=== PATIENT | male | born 1960 | race Caucasian/White ===

== ENCOUNTER 2017-03-14 08:51 | Emergency (ER) | payer MEDICARE, MEDICAID ==
[~2017-03-14] VITALS: Ht 177.8 cm; Wt 92.0 kg
[~2017-03-14 08:51] MED LIST: ASPI-1265 PO; BUPR2TAB11 SL; CARV6.253 PO; LISI-600 PO; NITR0.4T51 SL; ROSU5TAB PO; TEMA30CA5 PO; TRAZ-143 PO
[2017-03-14 08:56] VITALS: BP 127/94
[2017-03-14] MEDS ORDERED: PERM60CR19 TP (09:01)
== END 2017-03-14 09:17 | disposition home or self-care (01) ==
LOC: ER 08:52
DX: B86 Scabies (principal); I10 Essential (primary) hypertension; J44.9 Chronic obstructive pulmonary disease, unspecified; I25.10 Atherosclerotic heart disease of native coronary artery without angina pectoris; G89.29 Other chronic pain; I25.2 Old myocardial infarction; F12.10 Cannabis abuse, uncomplicated; F15.10 Other stimulant abuse, uncomplicated; Z86.73 Personal history of transient ischemic attack (TIA), and cerebral infarction without residual deficits; Z98.890 Other specified postprocedural states; Z79.82 Long term (current) use of aspirin
CPT/HCPCS: 99283

== ENCOUNTER 2017-04-09 14:11 | Emergency (ER) | payer MEDICARE, MEDICAID ==
[~2017-04-09] VITALS: Ht 177.8 cm; Wt 95.4 kg
[~2017-04-09 14:11] MED LIST changes: +PERM60CR19 TP
[2017-04-09 14:50] LABS: CLARITY,URINE Clear (Clear); COLOR,URINE Yellow (Yellow); GLUCOSE, URINE Negative (Neg); KETONES,URINE Negative (Neg); LEUKOCYTE ESTERASE ,URINE Negative (Neg); NITRITES, URINE Negative (Neg); OCCULT BLOOD,URINE Negative (Neg); PH,URINE 8.5 (4.8-8.0); PROTEIN,URINE Negative (Neg); UROBILINOGEN,URINE 0.2 E.U/dL (0.2-1.0)
[2017-04-09 14:52] LABS: ALANINE AMINOTRANSFERASE 41 U/L (12-78); ALBUMIN 4.2 G/DL (3.4-5.0); ALBUMIN/GLOBULIN RATIO 1.4 (1.1-1.5); ALKALINE PHOSPHATASE 78 IU/L (46-116); ANION GAP 7 (8-16); ASPARTATE AMINO TRANSFERASE 23 U/L (10-37); BILIRUBIN,TOTAL 0.9 MG/DL (0.1-1.0); BLOOD UREA NITROGEN 15 MG/DL (7-18); BUN/CREATININE RATIO 12.5 (5.4-32.0); CALCIUM 8.9 MG/DL (8.5-10.1); CHLORIDE 105 MMOL/L (99-107); GLUCOSE 85 MG/DL (70-104); LIPASE 92 U/L (73-393); POTASSIUM 4.1 MMOL/L (3.5-5.1); SODIUM 141 MMOL/L (135-145); TOTAL CARBON DIOXIDE 28.6 MMOL/L (24-32); TOTAL PROTEIN 7.3 G/DL (6.4-8.2); eGFR 62 ML/MIN
[2017-04-09 15:00] LABS: UA COLLECTION TYPE CLN CATCH MIDSTREAM
[2017-04-09 15:59] VITALS: BP 142/80
[2017-04-09 16:52] LABS: BASOPHILS % (AUTO) 0.4 % (0-1); EOSINOPHILS # (AUTO) 0.5 X10'3 (0-0.9); EOSINOPHILS % (AUTO) 3.6 % (0-6); HEMATOCRIT 52.1 % (42.0-52.0); LYMPHOCYTES # (AUTO) 1.8 X10'3 (1.1-4.8); LYMPHOCYTES % (AUTO) 13.9 % (21-51); MEAN CORPUSCULAR HEMOGLOBIN 34.7 PG (27.0-31.0); MEAN CORPUSCULAR HGB CONC 36.3 % (33.0-36.5); MEAN CORPUSCULAR VOLUME 95.7 FL (78-98); MEAN PLATELET VOLUME 10.3 FL (7.4-10.4); MONOCYTES # (AUTO) 0.8 X10'3 (0-0.9); MONOCYTES % (AUTO) 6.5 % (2-12); NEUTROPHILS # (AUTO) 9.7 X10'3 (1.8-7.7); NEUTROPHILS % (AUTO) 75.6 % (42-75); PLATELET COUNT 245 X10'3 (140-440); RED BLOOD COUNT 5.44 X10'6 (4.70-6.10); WHITE BLOOD COUNT 12.8 X10'3 (4.5-11.0)
[2017-04-09 17:17] LABS: HEMOGLOBIN 18.9 g/dl (14.0-17.9)
== END 2017-04-09 16:01 | disposition home or self-care (01) ==
LOC: ER 14:11
DX: K59.00 Constipation, unspecified (principal); I25.2 Old myocardial infarction; G89.29 Other chronic pain; J44.9 Chronic obstructive pulmonary disease, unspecified; F41.9 Anxiety disorder, unspecified; F32.9 Major depressive disorder, single episode, unspecified; I10 Essential (primary) hypertension; I25.10 Atherosclerotic heart disease of native coronary artery without angina pectoris; G43.909 Migraine, unspecified, not intractable, without status migrainosus; F12.10 Cannabis abuse, uncomplicated; F15.10 Other stimulant abuse, uncomplicated; Z86.73 Personal history of transient ischemic attack (TIA), and cerebral infarction without residual deficits; Z79.82 Long term (current) use of aspirin
CPT/HCPCS: 36415; 80053; 81003; 83690; 85025; 99284

== ENCOUNTER 2017-05-08 16:12 | Emergency (ER) | payer MEDICARE, MEDICAID ==
[~2017-05-08] VITALS: Ht 177.8 cm; Wt 95.0 kg
[~2017-05-08 16:12] MED LIST changes: -PERM60CR19 TP
[2017-05-08] MEDS ORDERED: TAM75C PO (16:37)
[2017-05-08 16:44] VITALS: BP 157/96
== END 2017-05-08 16:46 | disposition home or self-care (01) ==
LOC: ER 16:12
DX: B34.9 Viral infection, unspecified (principal); I25.10 Atherosclerotic heart disease of native coronary artery without angina pectoris; I10 Essential (primary) hypertension; I25.2 Old myocardial infarction; J44.9 Chronic obstructive pulmonary disease, unspecified; G89.29 Other chronic pain; F12.90 Cannabis use, unspecified, uncomplicated; F15.90 Other stimulant use, unspecified, uncomplicated; Z86.73 Personal history of transient ischemic attack (TIA), and cerebral infarction without residual deficits; Z98.890 Other specified postprocedural states; Z79.82 Long term (current) use of aspirin; Z79.899 Other long term (current) drug therapy
CPT/HCPCS: 99283

== ENCOUNTER 2017-07-06 08:19 | Emergency (ER) | payer MEDICARE, MEDICAID ==
[~2017-07-06] VITALS: Ht 5787.1 cm; Wt 92.5 kg
[2017-07-06 08:25] VITALS: BP 129/80
[2017-07-06] MEDS ORDERED: mupirocin 2% ointment 22GM TP STA (09:05)
== END 2017-07-06 09:27 | disposition home or self-care (01) ==
LOC: ER 08:19
DX: R21 Rash and other nonspecific skin eruption (principal); I25.10 Atherosclerotic heart disease of native coronary artery without angina pectoris; I10 Essential (primary) hypertension; I25.2 Old myocardial infarction; G89.29 Other chronic pain; G43.909 Migraine, unspecified, not intractable, without status migrainosus; F12.10 Cannabis abuse, uncomplicated; F15.10 Other stimulant abuse, uncomplicated; Z98.890 Other specified postprocedural states; Z87.891 Personal history of nicotine dependence; Z86.73 Personal history of transient ischemic attack (TIA), and cerebral infarction without residual deficits
CPT/HCPCS: 99282

== ENCOUNTER 2017-08-29 11:37 | Emergency (ER) | payer MEDICARE, MEDICAID ==
[~2017-08-29] VITALS: Ht 177.8 cm; Wt 93.1 kg
[2017-08-29 11:47] VITALS: BP 129/72
[2017-08-29] MEDS ORDERED: PERM60CR19 TP (12:53)
[2017-08-29] MEDS ORDERED: FLUC150T66 PO (12:53)
== END 2017-08-29 13:00 | disposition home or self-care (01) ==
LOC: ER 11:38
DX: R21 Rash and other nonspecific skin eruption (principal); G43.909 Migraine, unspecified, not intractable, without status migrainosus; I10 Essential (primary) hypertension; I25.2 Old myocardial infarction; I25.10 Atherosclerotic heart disease of native coronary artery without angina pectoris; F12.90 Cannabis use, unspecified, uncomplicated; F15.90 Other stimulant use, unspecified, uncomplicated; G89.29 Other chronic pain; Z86.73 Personal history of transient ischemic attack (TIA), and cerebral infarction without residual deficits; Z98.61 Coronary angioplasty status; Z98.890 Other specified postprocedural states; Z79.82 Long term (current) use of aspirin; Z79.899 Other long term (current) drug therapy
CPT/HCPCS: 99283

== ENCOUNTER 2017-12-23 11:43 | Emergency (ER) | payer MEDICARE, MEDICAID ==
[~2017-12-23] VITALS: Ht 175.3 cm; Wt 88.6 kg
[~2017-12-23 11:43] MED LIST changes: -TRAZ-143 PO; +TRAZ-218 PO
[2017-12-23 12:27] LABS: BASOPHILS # (AUTO) 0.1 X10'3 (0-0.2); BASOPHILS % (AUTO) 0.8 % (0-1); EOSINOPHILS # (AUTO) 0.5 X10'3 (0-0.9); EOSINOPHILS % (AUTO) 6.2 % (0-6); HEMATOCRIT 48.4 % (42.0-52.0); LYMPHOCYTES # (AUTO) 1.4 X10'3 (1.1-4.8); LYMPHOCYTES % (AUTO) 16.6 % (21-51); MEAN CORPUSCULAR HEMOGLOBIN 34.9 PG (27.0-31.0); MEAN CORPUSCULAR HGB CONC 35.1 % (33.0-36.5); MEAN CORPUSCULAR VOLUME 99.6 FL (78-98); MEAN PLATELET VOLUME 9.1 FL (7.4-10.4); MONOCYTES # (AUTO) 0.9 X10'3 (0-0.9); MONOCYTES % (AUTO) 11.1 % (2-12); NEUTROPHILS # (AUTO) 5.7 X10'3 (1.8-7.7); NEUTROPHILS % (AUTO) 65.3 % (42-75); PLATELET COUNT 196 X10'3 (140-440); RED BLOOD COUNT 4.86 X10'6 (4.70-6.10); RED CELL DISTRIBUTION WIDTH 12.4 % (11.5-14.5); WHITE BLOOD COUNT 8.6 X10'3 (4.5-11.0)
[2017-12-23 12:38] LABS: PARTIAL THROMBOPLASTIN TIME 29 SECONDS (22-32); PROTHROMBIN TIME 9.9 SECONDS (9.0-12.0)
[2017-12-23 12:41] LABS: ALANINE AMINOTRANSFERASE 39 U/L (12-78); ALBUMIN 3.9 G/DL (3.4-5.0); ALBUMIN/GLOBULIN RATIO 1.4 (1.1-1.5); ALKALINE PHOSPHATASE 80 IU/L (46-116); ANION GAP 9 (8-16); ASPARTATE AMINO TRANSFERASE 39 U/L (10-37); BILIRUBIN,TOTAL 0.7 MG/DL (0.1-1.0); BLOOD UREA NITROGEN 14 MG/DL (7-18); BUN/CREATININE RATIO 12.6 (5.4-32.0); CALCIUM 8.9 MG/DL (8.5-10.1); CHLORIDE 101 MMOL/L (99-107); CREATININE 1.11 MG/DL (0.60-1.10); GLUCOSE 129 MG/DL (70-104); POTASSIUM 3.9 MMOL/L (3.5-5.1); SODIUM 137 MMOL/L (135-145); TOTAL CARBON DIOXIDE 27.4 MMOL/L (24-32); TOTAL PROTEIN 6.7 G/DL (6.4-8.2); eGFR 68 ML/MIN
[2017-12-23] MEDS ORDERED: ipratropium/albuterol 3ml nebule NEB ONE (12:50)
[2017-12-23 13:09] VITALS: BP 118/81
[2017-12-23] MEDS ORDERED: BUDE10.2 INH (13:49)
[2017-12-23] MEDS ORDERED: ALBU18HF2 INH (13:49)
[2017-12-23] MEDS ORDERED: NEBU-161 NEB (13:49)
[2017-12-23] MEDS ORDERED: ALB0.5UD IH (13:49)
[2017-12-24] MEDS ORDERED: BUSP15TA14 PO (15:41)
[2017-12-24] MEDS ORDERED: AMLO2.5T2 PO (15:41)
== END 2017-12-23 14:04 | disposition home or self-care (01) ==
LOC: ER 11:43
DX: J44.9 Chronic obstructive pulmonary disease, unspecified (principal); I10 Essential (primary) hypertension; G43.909 Migraine, unspecified, not intractable, without status migrainosus; I25.10 Atherosclerotic heart disease of native coronary artery without angina pectoris; I25.2 Old myocardial infarction; K57.90 Diverticulosis of intestine, part unspecified, without perforation or abscess without bleeding; G89.29 Other chronic pain; M54.9 Dorsalgia, unspecified; F12.90 Cannabis use, unspecified, uncomplicated; F17.210 Nicotine dependence, cigarettes, uncomplicated; F15.90 Other stimulant use, unspecified, uncomplicated; Z95.1 Presence of aortocoronary bypass graft; Z79.82 Long term (current) use of aspirin; Z86.73 Personal history of transient ischemic attack (TIA), and cerebral infarction without residual deficits
CPT/HCPCS: 36415; 71046; 80053; 83880; 84484; 85025; 85610; 85730; 93005; 94640; 99285

== ENCOUNTER 2017-12-24 11:08 | Inpatient (IN) | payer MEDICARE, MEDICAID ==
[~2017-12-24] VITALS: Ht 177.8 cm; Wt 85.9 kg
[~2017-12-24 11:08] MED LIST changes: +ALB0.5UD IH; +ALBU18HF2 INH; +BUDE10.2 INH; +NEBU-161 NEB
[2017-12-24] MEDS ORDERED: normal saline 1000ML IV soln IVB ONE (12:15)
[2017-12-24 12:19] LABS: BASOPHILS # (AUTO) 0.1 X10'3 (0-0.2); BASOPHILS % (AUTO) 0.3 % (0-1); EOSINOPHILS # (AUTO) 0.4 X10'3 (0-0.9); EOSINOPHILS % (AUTO) 1.6 % (0-6); HEMOGLOBIN 15.2 g/dl (14.0-17.9); LYMPHOCYTES # (AUTO) 1.2 X10'3 (1.1-4.8); LYMPHOCYTES % (AUTO) 5.1 % (21-51); MEAN CORPUSCULAR HEMOGLOBIN 33.6 PG (27.0-31.0); MEAN CORPUSCULAR HGB CONC 33.7 % (33.0-36.5); MEAN CORPUSCULAR VOLUME 99.6 FL (78-98); MEAN PLATELET VOLUME 9.1 FL (7.4-10.4); MONOCYTES # (AUTO) 1.6 X10'3 (0-0.9); MONOCYTES % (AUTO) 7.1 % (2-12); NEUTROPHILS # (AUTO) 19.4 X10'3 (1.8-7.7); NEUTROPHILS % (AUTO) 85.9 % (42-75); PLATELET COUNT 206 X10'3 (140-440); RED BLOOD COUNT 4.52 X10'6 (4.70-6.10); RED CELL DISTRIBUTION WIDTH 13.2 % (11.5-14.5); WHITE BLOOD COUNT 22.6 X10'3 (4.5-11.0)
[2017-12-24 12:22] LABS: ALANINE AMINOTRANSFERASE 26 U/L (12-78); ALBUMIN 3.4 G/DL (3.4-5.0); ALBUMIN/GLOBULIN RATIO 1.2 (1.1-1.5); ALKALINE PHOSPHATASE 60 IU/L (46-116); ANION GAP 6 (8-16); ASPARTATE AMINO TRANSFERASE 19 U/L (10-37); BILIRUBIN,TOTAL 1.3 MG/DL (0.1-1.0); BLOOD UREA NITROGEN 16 MG/DL (7-18); BUN/CREATININE RATIO 12.7 (5.4-32.0); CALCIUM 8.2 MG/DL (8.5-10.1); CHLORIDE 104 MMOL/L (99-107); CREATININE 1.26 MG/DL (0.60-1.10); GLUCOSE 118 MG/DL (70-104); POTASSIUM 4.3 MMOL/L (3.5-5.1); SODIUM 136 MMOL/L (135-145); TOTAL CARBON DIOXIDE 25.6 MMOL/L (24-32); TOTAL PROTEIN 6.2 G/DL (6.4-8.2); eGFR 59 ML/MIN
[2017-12-24 12:23] LABS: PARTIAL THROMBOPLASTIN TIME 30 SECONDS (22-32); PROTHROMBIN TIME 10.7 SECONDS (9.0-12.0)
[2017-12-24 12:53] LABS: D-DIMER 0.21 MG/L FEU (0-0.50)
[2017-12-24 13:10] LABS: PLATELET ESTIMATE NORMAL; TOTAL CELLS COUNTED 100
[2017-12-24 13:35] LABS: TROPONIN I < 0.04 NG/ML (0.0-0.05)
[2017-12-24 14:02] LABS: URINE AMPHETAMINE SCREEN POSITIVE (Neg); URINE BARBITUATE SCREEN NEGATIVE (Neg); URINE BENZODIAZEPINES SCREEN POSITIVE (Neg); URINE CANNABINOID SCREEN NEGATIVE (Neg); URINE COCAINE SCREEN NEGATIVE (Neg); URINE METHADONE SCREEN NEGATIVE (Neg); URINE OPIATE SCREEN NEGATIVE (Neg); URINE PHENCYCLIDINE SCREEN NEGATIVE (Neg)
[2017-12-24 14:10] LABS: CLARITY,URINE CLEAR (Clear); GLUCOSE, URINE NEGATIVE (Neg); KETONES,URINE TRACE mg/dl (Neg); LEUKOCYTE ESTERASE ,URINE NEGATIVE (Neg); NITRITES, URINE NEGATIVE (Neg); OCCULT BLOOD,URINE NEGATIVE (Neg); PROTEIN,URINE NEGATIVE (Neg); UROBILINOGEN,URINE 0.2 E.U/dL (0.2-1.0)
[2017-12-24 14:14] LABS: COLOR,URINE DARK YELLOW (Yellow); UA COLLECTION TYPE CLN CATCH MIDSTREAM
[2017-12-24] MEDS ORDERED: ketorolac trometh. 30mg/ml inj. IV ONE (14:35)
[2017-12-24] MEDS ORDERED: azithromycin/NS 500mg/250ml 250 ML IV ONE (14:55)
[2017-12-24] MEDS ORDERED: CefTRIAXone/D5W-Rocephin 1gm 50 ML IV ONE (14:55)
[2017-12-24] MEDS ORDERED: AMLO2.5T2 PO (15:41)
[2017-12-24] MEDS ORDERED: BUSP15TA14 PO (15:41)
[2017-12-24] MEDS ORDERED: magnesium 4gm in 100ml NS 100 ML IV PRN (15:45)
[2017-12-24] MEDS ORDERED: potassium Cl 20 mEq SR tablet PO PRN ×2 (15:45)
[2017-12-24] MEDS ORDERED: non-formulary drug (Temazepam* (Restoril*) 1 CAP) PO PRN (15:45)
[2017-12-24] MEDS ORDERED: magnesium 1gm/100ml D5W IVPB 100 ML IV PRN (15:45)
[2017-12-24] MEDS ORDERED: magnesium hydroxide 30ml (MOM) UD suspension PO PRN (15:45)
[2017-12-24] MEDS ORDERED: HYDROcodone/acetaminophen 10/325mg tab PO PRN (15:45)
[2017-12-24] MEDS ORDERED: magnesium Cl slow-release 64mg tablet PO PRN (15:45)
[2017-12-24] MEDS ORDERED: mag hydrox/Alum hydrox/simeth 30ml oral suspension PO PRN (15:45)
[2017-12-24] MEDS ORDERED: non-formulary drug (Buprenorphine Hcl 1 TAB) SL PRN (15:45)
[2017-12-24] MEDS ORDERED: potassium Cl 40MEQ/NS 500ml 500 ML IV PRN ×2 (15:45)
[2017-12-24] MEDS ORDERED: ondansetron/PF 4mg/2ml inj IV PRN (15:45)
[2017-12-24] MEDS ORDERED: bisacodyl 10mg suppository rectal RC PRN (15:45)
[2017-12-24] MEDS ORDERED: nitroGLYCERIN 0.4mg SUBLingual tab SL PRN (15:45)
[2017-12-24] MEDS ORDERED: morphine 2 MG/ML inj. syringe IV PRN ×2 (15:45)
[2017-12-24] MEDS ORDERED: HYDROcodone/acetaminophen 5mg/325mg tablet PO PRN (15:45)
[2017-12-24] MEDS ORDERED: non-formulary drug (Albuterol Sulfate (Ventolin Hfa) 2 PUFFS) INH PRN (15:45)
[2017-12-24] MEDS ORDERED: acetaminophen 325mg tablet PO PRN (15:45)
[2017-12-24] MEDS ORDERED: guaiFENesin 200 MG/10 ML oral syrup UD cup PO PRN (15:50)
[2017-12-24] MEDS ORDERED: albuterol 2.5 MG/3 ML nebule NEB PRN (16:00)
[2017-12-24] MEDS ORDERED: temazepam 15mg capsule PO PRN (16:00)
[2017-12-24 16:40] VITALS: BP 100/61
[2017-12-24] MEDS: normal saline 1000ml 1,000 ML IV SCH (17:23)
[2017-12-24 18:00] VITALS: BP 100/61
[2017-12-24] MEDS: ipratropium/albuterol 3ml nebule NEB SCH ×2 (19:00→23:00)
[2017-12-24] MEDS: albuterol 2.5 MG/3 ML nebule NEB SCH (19:54)
[2017-12-24] MEDS: budesonide 0.5mg/2ml UD nebule IH SCH (19:54)
[2017-12-24] MEDS ORDERED: non-formulary drug (Budesonide/Formoterol Fumarate (Symbicort 160-4.5 Mcg Inhaler) 2 PUFFS INH SCH (20:00)
[2017-12-24] MEDS: buprenorphine/naloxone 2-0.5mg sublingual tablet SL SCH (20:00)
[2017-12-24] MEDS: busPIRone 15mg tablet PO SCH (21:04)
[2017-12-24] MEDS: carvedilol 6.25mg tablet PO SCH (21:04)
[2017-12-24] MEDS: traZODone 50mg tablet PO SCH (21:04)
[2017-12-24] MEDS: docusate sod 100mg capsule PO SCH (21:04)
[2017-12-24] MEDS: methylPREDNISolone sod succ 125mg/2ml vial IV SCH (21:06)
[2017-12-24 22:00] VITALS: BP 126/76
[2017-12-25] MEDS: diazepam 5mg tablet PO SCH ×2 (00:22→08:35)
[2017-12-25] MEDS: normal saline 1000ml 1,000 ML IV SCH ×3 (01:41→17:35)
[2017-12-25] MEDS: methylPREDNISolone sod succ 125mg/2ml vial IV SCH ×4 (02:41→21:11)
[2017-12-25] MEDS: ipratropium/albuterol 3ml nebule NEB SCH (03:00)
[2017-12-25 05:00] VITALS: BP 117/61
[2017-12-25 06:29] LABS: BASOPHILS % (AUTO) 0.2 % (0-1); EOSINOPHILS % (AUTO) 0 % (0-6); HEMOGLOBIN 16.3 g/dl (14.0-17.9); LYMPHOCYTES # (AUTO) 0.9 X10'3 (1.1-4.8); LYMPHOCYTES % (AUTO) 4.4 % (21-51); MEAN CORPUSCULAR HEMOGLOBIN 35.1 PG (27.0-31.0); MEAN CORPUSCULAR HGB CONC 35.5 % (33.0-36.5); MEAN PLATELET VOLUME 9.1 FL (7.4-10.4); MONOCYTES # (AUTO) 0.2 X10'3 (0-0.9); MONOCYTES % (AUTO) 0.8 % (2-12); NEUTROPHILS # (AUTO) 18.6 X10'3 (1.8-7.7); NEUTROPHILS % (AUTO) 94.6 % (42-75); PLATELET COUNT 188 X10'3 (140-440); RED BLOOD COUNT 4.65 X10'6 (4.70-6.10); RED CELL DISTRIBUTION WIDTH 12.4 % (11.5-14.5); WHITE BLOOD COUNT 19.7 X10'3 (4.5-11.0)
[2017-12-25 06:48] LABS: ALANINE AMINOTRANSFERASE 27 U/L (12-78); ALBUMIN 3.2 G/DL (3.4-5.0); ALBUMIN/GLOBULIN RATIO 0.9 (1.1-1.5); ALKALINE PHOSPHATASE 72 IU/L (46-116); ANION GAP 10 (8-16); ASPARTATE AMINO TRANSFERASE 14 U/L (10-37); BILIRUBIN,TOTAL 0.4 MG/DL (0.1-1.0); BLOOD UREA NITROGEN 15 MG/DL (7-18); BUN/CREATININE RATIO 12.7 (5.4-32.0); CALCIUM 8.4 MG/DL (8.5-10.1); CHLORIDE 107 MMOL/L (99-107); CREATININE 1.18 MG/DL (0.60-1.10); GLUCOSE 204 MG/DL (70-104); POTASSIUM 4.3 MMOL/L (3.5-5.1); SODIUM 140 MMOL/L (135-145); TOTAL CARBON DIOXIDE 23.3 MMOL/L (24-32); TOTAL PROTEIN 6.6 G/DL (6.4-8.2); eGFR 63 ML/MIN
[2017-12-25] MEDS: albuterol 2.5 MG/3 ML nebule NEB SCH ×4 (07:47→19:19)
[2017-12-25] MEDS: nicotine 14mg patch - 24hr TD SCH (08:00)
[2017-12-25] MEDS: buprenorphine/naloxone 2-0.5mg sublingual tablet SL SCH (08:00)
[2017-12-25] MEDS ORDERED: azithromycin/NS 500mg/250ml 250 ML IV SCH (08:00)
[2017-12-25] MEDS: K and/or MAG REPLACEMENT MC SCH (08:00)
[2017-12-25] MEDS ORDERED: CefTRIAXone/D5W-Rocephin 1gm 50 ML IV SCH (08:00)
[2017-12-25] MEDS: pantoprazole 40mg Tablet.DR PO SCH (08:29)
[2017-12-25] MEDS: aspirin 81mg tab.chew PO SCH (08:31)
[2017-12-25] MEDS: docusate sod 100mg capsule PO SCH ×2 (08:32→21:09)
[2017-12-25] MEDS: busPIRone 15mg tablet PO SCH ×2 (08:32→21:09)
[2017-12-25] MEDS: carvedilol 6.25mg tablet PO SCH ×2 (08:35→21:09)
[2017-12-25] MEDS: atorvastatin 20mg tablet PO SCH (08:35)
[2017-12-25] MEDS: enoxaparin 40mg/0.4ml syringe SUBCUT SCH (08:36)
[2017-12-25 10:00] VITALS: BP 90/66
[2017-12-25] MEDS ORDERED: morphine 2 MG/ML inj. syringe IV PRN (12:00)
[2017-12-25] MEDS: HYDROcodone/acetaminophen 5mg/325mg tablet PO PRN (13:59)
[2017-12-25 17:00] VITALS: BP 143/80
[2017-12-25] MEDS ORDERED: levoFLOXACIN-Levaquin 750MG/D5 150 ML IV SCH (17:05)
[2017-12-25] MEDS ORDERED: levoFLOXACIN-Levaquin 750MG/D5 150 ML IV ONE (17:40)
[2017-12-25] MEDS: budesonide 0.5mg/2ml UD nebule IH SCH ×2 (19:18→21:00)
[2017-12-25 21:06] VITALS: BP 139/73
[2017-12-25] MEDS: traZODone 50mg tablet PO SCH (21:09)
[2017-12-25 22:00] VITALS: BP 131/60
[2017-12-26] MEDS: HYDROcodone/acetaminophen 5mg/325mg tablet PO PRN (01:17)
[2017-12-26] MEDS: methylPREDNISolone sod succ 125mg/2ml vial IV SCH ×2 (02:33→08:41)
[2017-12-26 05:00] VITALS: BP_SYST 118; BP_SYST 149; BP_DIAS 58; BP_DIAS 70
[2017-12-26] MEDS: normal saline 1000ml 1,000 ML IV SCH (05:29)
[2017-12-26 05:54] LABS: BASOPHILS % (AUTO) 0.1 % (0-1); EOSINOPHILS % (AUTO) 0 % (0-6); HEMATOCRIT 40.2 % (42.0-52.0); HEMOGLOBIN 14.3 g/dl (14.0-17.9); LYMPHOCYTES # (AUTO) 0.8 X10'3 (1.1-4.8); MEAN CORPUSCULAR HEMOGLOBIN 35.5 PG (27.0-31.0); MEAN CORPUSCULAR HGB CONC 35.5 % (33.0-36.5); MEAN PLATELET VOLUME 10.1 FL (7.4-10.4); MONOCYTES # (AUTO) 0.4 X10'3 (0-0.9); MONOCYTES % (AUTO) 2.6 % (2-12); NEUTROPHILS # (AUTO) 15.3 X10'3 (1.8-7.7); NEUTROPHILS % (AUTO) 92.3 % (42-75); PLATELET COUNT 175 X10'3 (140-440); RED BLOOD COUNT 4.02 X10'6 (4.70-6.10); RED CELL DISTRIBUTION WIDTH 12.4 % (11.5-14.5); WHITE BLOOD COUNT 16.5 X10'3 (4.5-11.0)
[2017-12-26 06:14] LABS: ALANINE AMINOTRANSFERASE 25 U/L (12-78); ALBUMIN 2.8 G/DL (3.4-5.0); ALBUMIN/GLOBULIN RATIO 0.8 (1.1-1.5); ALKALINE PHOSPHATASE 77 IU/L (46-116); ANION GAP 9 (8-16); ASPARTATE AMINO TRANSFERASE 12 U/L (10-37); BILIRUBIN,TOTAL 0.2 MG/DL (0.1-1.0); BLOOD UREA NITROGEN 18 MG/DL (7-18); BUN/CREATININE RATIO 14.9 (5.4-32.0); CALCIUM 7.9 MG/DL (8.5-10.1); CHLORIDE 111 MMOL/L (99-107); CREATININE 1.21 MG/DL (0.60-1.10); GLUCOSE 209 MG/DL (70-104); MAGNESIUM 2.3 MG/DL (1.5-2.4); POTASSIUM 3.9 MMOL/L (3.5-5.1); SODIUM 143 MMOL/L (135-145); TOTAL CARBON DIOXIDE 23.4 MMOL/L (24-32); TOTAL PROTEIN 6.1 G/DL (6.4-8.2); eGFR 62 ML/MIN
[2017-12-26] MEDS: budesonide 0.5mg/2ml UD nebule IH SCH (07:51)
[2017-12-26] MEDS: albuterol 2.5 MG/3 ML nebule NEB SCH ×2 (07:51→12:08)
[2017-12-26] MEDS ORDERED: levoFLOXACIN-Levaquin 750MG/D5 150 ML IV SCH (08:00)
[2017-12-26] MEDS: K and/or MAG REPLACEMENT MC SCH (08:00)
[2017-12-26] MEDS: nicotine 14mg patch - 24hr TD SCH (08:00)
[2017-12-26] MEDS: busPIRone 15mg tablet PO SCH (08:41)
[2017-12-26] MEDS: aspirin 81mg tab.chew PO SCH (08:41)
[2017-12-26] MEDS: pantoprazole 40mg Tablet.DR PO SCH (08:41)
[2017-12-26] MEDS: docusate sod 100mg capsule PO SCH (08:41)
[2017-12-26] MEDS: enoxaparin 40mg/0.4ml syringe SUBCUT SCH (08:46)
[2017-12-26] MEDS: atorvastatin 20mg tablet PO SCH (08:46)
[2017-12-26] MEDS: carvedilol 6.25mg tablet PO SCH (08:46)
[2017-12-26] MEDS ORDERED: LEVO500T89 PO (12:57)
[2017-12-26] MEDS ORDERED: PRED10TA23 PO (12:57)
[2017-12-26] MEDS ORDERED: NICO-631 TD (12:57)
[2017-12-26] MEDS ORDERED: GUAI100L97 PO (12:57)
[2017-12-26] MEDS ORDERED: PANT40TA4 PO (12:57)
== END 2017-12-26 13:50 | disposition home or self-care (01) | DRG 871 ==
LOC: ER 11:08 → ED HOLD 15:41 → ORTHO 4S 16:40
PROVIDERS: ADMIT Internal Medicine; ATTEND Family Medicine
DX: A41.9 Sepsis, unspecified organism (principal); J18.1 Lobar pneumonia, unspecified organism; J44.0 Chronic obstructive pulmonary disease with (acute) lower respiratory infection; J44.1 Chronic obstructive pulmonary disease with (acute) exacerbation; F15.10 Other stimulant abuse, uncomplicated; G89.4 Chronic pain syndrome; I10 Essential (primary) hypertension; F17.210 Nicotine dependence, cigarettes, uncomplicated; K57.90 Diverticulosis of intestine, part unspecified, without perforation or abscess without bleeding; I25.10 Atherosclerotic heart disease of native coronary artery without angina pectoris; F12.90 Cannabis use, unspecified, uncomplicated; F32.9 Major depressive disorder, single episode, unspecified; F41.9 Anxiety disorder, unspecified; G43.909 Migraine, unspecified, not intractable, without status migrainosus; Z98.61 Coronary angioplasty status; I25.2 Old myocardial infarction; Z86.73 Personal history of transient ischemic attack (TIA), and cerebral infarction without residual deficits; Z71.6 Tobacco abuse counseling; Z71.51 Drug abuse counseling and surveillance of drug abuser
CPT/HCPCS: 36415; 71045; 80053; 80305; 81003; 83605; 83735; 84484; 85025; 85379; 85610; 85730; 87040; 87070; 93005; 94640; 94760; 96361; 96374; 99285; J0456; J0696; J1650; J1885; J1956; J2270; J2930; J7030; J7626

== ENCOUNTER 2018-01-28 19:46 | Emergency (ER) | payer MEDICARE, MEDICAID ==
[~2018-01-28] VITALS: Ht 177.8 cm; Wt 91.0 kg
[~2018-01-28 19:46] MED LIST changes: -ALB0.5UD IH; -BUPR2TAB11 SL; +BUSP15TA14 PO; +GUAI100L97 PO; -NEBU-161 NEB; +NICO-631 TD; +PANT40TA4 PO
[2018-01-28 20:23] LABS: BASOPHILS # (AUTO) 0.1 X10'3 (0-0.2); BASOPHILS % (AUTO) 0.5 % (0-1); EOSINOPHILS # (AUTO) 0.3 X10'3 (0-0.9); EOSINOPHILS % (AUTO) 2.7 % (0-6); HEMATOCRIT 51.2 % (42.0-52.0); HEMOGLOBIN 17.9 g/dl (14.0-17.9); LYMPHOCYTES # (AUTO) 2.3 X10'3 (1.1-4.8); MEAN CORPUSCULAR HGB CONC 34.9 % (33.0-36.5); MEAN CORPUSCULAR VOLUME 97.4 FL (78-98); MEAN PLATELET VOLUME 8.7 FL (7.4-10.4); MONOCYTES # (AUTO) 0.9 X10'3 (0-0.9); MONOCYTES % (AUTO) 8.7 % (2-12); NEUTROPHILS # (AUTO) 6.5 X10'3 (1.8-7.7); NEUTROPHILS % (AUTO) 65.1 % (42-75); PLATELET COUNT 240 X10'3 (140-440); RED BLOOD COUNT 5.26 X10'6 (4.70-6.10); RED CELL DISTRIBUTION WIDTH 13.3 % (11.5-14.5); WHITE BLOOD COUNT 9.9 X10'3 (4.5-11.0)
[2018-01-28 20:41] LABS: ALBUMIN 3.9 G/DL (3.4-5.0); ALBUMIN/GLOBULIN RATIO 1.2 (1.1-1.5); ALKALINE PHOSPHATASE 72 IU/L (46-116); BILIRUBIN,TOTAL 0.7 MG/DL (0.1-1.0); BLOOD UREA NITROGEN 14 MG/DL (7-18); BUN/CREATININE RATIO 9.3 (5.4-32.0); CALCIUM 8.9 MG/DL (8.5-10.1); TOTAL CARBON DIOXIDE 27.9 MMOL/L (24-32); TOTAL PROTEIN 7.2 G/DL (6.4-8.2); eGFR 48 ML/MIN
[2018-01-28 20:43] LABS: PARTIAL THROMBOPLASTIN TIME 31 SECONDS (22-32); PROTHROMBIN TIME 10.3 SECONDS (9.0-12.0)
[2018-01-28 20:57] LABS: ANION GAP 13 (8-16); CHLORIDE 104 MMOL/L (99-107); GLUCOSE 116 MG/DL (70-104); POTASSIUM 3.8 MMOL/L (3.5-5.1); SODIUM 145 MMOL/L (135-145)
[2018-01-28 21:00] LABS: ALANINE AMINOTRANSFERASE 27 U/L (12-78); ASPARTATE AMINO TRANSFERASE 22 U/L (10-37)
[2018-01-28 21:22] VITALS: BP 135/84
== END 2018-01-28 21:24 | disposition home or self-care (01) ==
LOC: ER 19:46
DX: I10 Essential (primary) hypertension (principal); R07.9 Chest pain, unspecified; G43.909 Migraine, unspecified, not intractable, without status migrainosus; I25.2 Old myocardial infarction; I25.10 Atherosclerotic heart disease of native coronary artery without angina pectoris; J44.9 Chronic obstructive pulmonary disease, unspecified; G89.29 Other chronic pain; Z86.73 Personal history of transient ischemic attack (TIA), and cerebral infarction without residual deficits; F12.90 Cannabis use, unspecified, uncomplicated; F15.90 Other stimulant use, unspecified, uncomplicated; Z79.82 Long term (current) use of aspirin; Z79.899 Other long term (current) drug therapy
CPT/HCPCS: 36415; 71045; 80053; 84484; 85025; 85610; 85730; 93005; 99285

== ENCOUNTER 2018-02-24 09:36 | Emergency (ER) | payer MEDICARE, MEDICAID ==
[~2018-02-24] VITALS: Ht 177.8 cm; Wt 79.0 kg
[2018-02-24 10:31] LABS: BASOPHILS % (AUTO) 0.1 % (0-1); EOSINOPHILS # (AUTO) 0.3 X10'3 (0-0.9); EOSINOPHILS % (AUTO) 2.4 % (0-6); HEMATOCRIT 51.7 % (42.0-52.0); HEMOGLOBIN 17.8 g/dl (14.0-17.9); LYMPHOCYTES % (AUTO) 8.6 % (21-51); MEAN CORPUSCULAR HEMOGLOBIN 34.2 PG (27.0-31.0); MEAN CORPUSCULAR HGB CONC 34.4 % (33.0-36.5); MEAN CORPUSCULAR VOLUME 99.5 FL (78-98); MEAN PLATELET VOLUME 8.8 FL (7.4-10.4); MONOCYTES # (AUTO) 1.3 X10'3 (0-0.9); MONOCYTES % (AUTO) 11.7 % (2-12); NEUTROPHILS # (AUTO) 8.7 X10'3 (1.8-7.7); NEUTROPHILS % (AUTO) 77.2 % (42-75); PLATELET COUNT 197 X10'3 (140-440); RED CELL DISTRIBUTION WIDTH 14.1 % (11.5-14.5); WHITE BLOOD COUNT 11.2 X10'3 (4.5-11.0)
[2018-02-24 10:47] LABS: ALANINE AMINOTRANSFERASE 27 U/L (12-78); ALBUMIN 3.7 G/DL (3.4-5.0); ALBUMIN/GLOBULIN RATIO 1.2 (1.1-1.5); ALKALINE PHOSPHATASE 85 IU/L (46-116); ANION GAP 9 (8-16); ASPARTATE AMINO TRANSFERASE 17 U/L (10-37); BILIRUBIN,TOTAL 0.5 MG/DL (0.1-1.0); BLOOD UREA NITROGEN 18 MG/DL (7-18); BUN/CREATININE RATIO 14.6 (5.4-32.0); CALCIUM 8.8 MG/DL (8.5-10.1); CHLORIDE 105 MMOL/L (99-107); CREATININE 1.23 MG/DL (0.60-1.10); GLUCOSE 97 MG/DL (70-104); SODIUM 140 MMOL/L (135-145); TOTAL PROTEIN 6.9 G/DL (6.4-8.2); eGFR 60 ML/MIN
[2018-02-24 10:48] LABS: POTASSIUM 4.1 MMOL/L (3.5-5.1)
[2018-02-24] MEDS ORDERED: PRED20TA PO (10:57)
[2018-02-24 11:07] VITALS: BP 120/61
== END 2018-02-24 11:09 | disposition home or self-care (01) ==
LOC: ER 09:36
DX: J40 Bronchitis, not specified as acute or chronic (principal); G43.909 Migraine, unspecified, not intractable, without status migrainosus; I25.10 Atherosclerotic heart disease of native coronary artery without angina pectoris; I10 Essential (primary) hypertension; I25.2 Old myocardial infarction; J44.9 Chronic obstructive pulmonary disease, unspecified; G89.29 Other chronic pain; F12.90 Cannabis use, unspecified, uncomplicated; F15.90 Other stimulant use, unspecified, uncomplicated; F17.200 Nicotine dependence, unspecified, uncomplicated; F32.9 Major depressive disorder, single episode, unspecified; Z86.73 Personal history of transient ischemic attack (TIA), and cerebral infarction without residual deficits; Z95.5 Presence of coronary angioplasty implant and graft; Z98.890 Other specified postprocedural states; Z79.82 Long term (current) use of aspirin; Z79.899 Other long term (current) drug therapy
CPT/HCPCS: 36415; 71046; 80053; 85025; 93005; 99284

== ENCOUNTER 2018-03-04 09:48 | Emergency (ER) | payer MEDICARE, MEDICAID ==
[~2018-03-04] VITALS: Ht 177.8 cm; Wt 91.2 kg
[2018-03-04 09:58] VITALS: BP 114/54
== END 2018-03-04 14:32 | disposition left against medical advice (07) ==
LOC: ER 09:49
DX: R05 Cough (principal); Z53.21 Procedure and treatment not carried out due to patient leaving prior to being seen by health care provider

== ENCOUNTER 2018-03-08 04:14 | Emergency (ER) | payer MEDICARE, MEDICAID ==
[~2018-03-08] VITALS: Ht 175.3 cm; Wt 89.5 kg
[2018-03-08 04:32] VITALS: BP 156/83
[2018-03-08] MEDS ORDERED: albuterol 2.5 MG/3 ML nebule NEB ONE (04:40)
[2018-03-08] MEDS ORDERED: dexamethasone 4mg tablet PO ONE (04:40)
[2018-03-08] MEDS ORDERED: naproxen 500mg tablet PO ONE (04:40)
[2018-03-08] MEDS ORDERED: NAPR-56 PO (04:58)
[2018-03-08] MEDS ORDERED: PRED20TA PO (04:58)
== END 2018-03-08 06:02 | disposition home or self-care (01) ==
LOC: ER 04:15
DX: S60.211A Contusion of right wrist, initial encounter (principal); J44.1 Chronic obstructive pulmonary disease with (acute) exacerbation; I25.10 Atherosclerotic heart disease of native coronary artery without angina pectoris; I10 Essential (primary) hypertension; I25.2 Old myocardial infarction; G89.29 Other chronic pain; F12.90 Cannabis use, unspecified, uncomplicated; F15.90 Other stimulant use, unspecified, uncomplicated; F17.210 Nicotine dependence, cigarettes, uncomplicated; Z86.73 Personal history of transient ischemic attack (TIA), and cerebral infarction without residual deficits; Z98.61 Coronary angioplasty status; Z79.82 Long term (current) use of aspirin; Z79.899 Other long term (current) drug therapy; W18.39XA Other fall on same level, initial encounter; Y93.89 Activity, other specified; Y92.89 Other specified places as the place of occurrence of the external cause; Y99.8 Other external cause status
CPT/HCPCS: 71046; 73110; 87502; 87503; 94640; 94760; 99284; J8540

== ENCOUNTER 2019-04-23 21:42 | Emergency (ER) | payer MEDICARE, MEDICAID ==
[~2019-04-23] VITALS: Ht 177.8 cm; Wt 86.0 kg
[~2019-04-23 21:42] MED LIST changes: -BUSP15TA14 PO; +BUSP15TA8 PO; -TRAZ-218 PO; +TRAZ-251 PO
[2019-04-23 21:44] VITALS: BP 169/105
[2019-04-23] MEDS ORDERED: CefTRIAXone 1000mg IM Kit (w/lidocaine diluent) IM ONE (23:15)
[2019-04-23] MEDS ORDERED: azithromycin 250mg tablet PO ONE (23:15)
[2019-04-24 00:02] LABS: CLARITY,URINE CLEAR (Clear); COLOR,URINE YELLOW (Yellow); GLUCOSE, URINE NEGATIVE (Neg); KETONES,URINE NEGATIVE (Neg); LEUKOCYTE ESTERASE ,URINE NEGATIVE (Neg); NITRITES, URINE NEGATIVE (Neg); OCCULT BLOOD,URINE NEGATIVE (Neg); PROTEIN,URINE NEGATIVE (Neg); UROBILINOGEN,URINE 0.2 E.U/dL (0.2-1.0)
[2019-04-24 00:03] LABS: UA COLLECTION TYPE CLN CATCH MIDSTREAM
[2019-04-24] MEDS ORDERED: SULF1TAB49 PO (00:12)
== END 2019-04-24 00:20 | disposition home or self-care (01) ==
LOC: ER 21:44
DX: L02.411 Cutaneous abscess of right axilla (principal); A63.8 Other specified predominantly sexually transmitted diseases; I25.10 Atherosclerotic heart disease of native coronary artery without angina pectoris; I10 Essential (primary) hypertension; I25.2 Old myocardial infarction; J44.9 Chronic obstructive pulmonary disease, unspecified; G89.29 Other chronic pain; F41.9 Anxiety disorder, unspecified; F32.9 Major depressive disorder, single episode, unspecified; F12.90 Cannabis use, unspecified, uncomplicated; F15.90 Other stimulant use, unspecified, uncomplicated; Z86.73 Personal history of transient ischemic attack (TIA), and cerebral infarction without residual deficits; Z98.61 Coronary angioplasty status; Z98.890 Other specified postprocedural states; Z79.82 Long term (current) use of aspirin; Z79.899 Other long term (current) drug therapy
CPT/HCPCS: 36415; 81003; 87491; 87591; 96372; 99283; J0696

== ENCOUNTER 2019-05-16 14:26 | Emergency (ER) | payer MEDICAID, MEDICARE ==
[~2019-05-16] VITALS: Ht 177.8 cm; Wt 90.0 kg
[2019-05-16] MEDS ORDERED: ondansetron/PF 4mg/2ml inj IV ONE (15:45)
[2019-05-16] MEDS ORDERED: dicyclomine 10 MG capsule PO ONE (15:45)
[2019-05-16] MEDS ORDERED: normal saline 1000ML IV soln IVB ONE (15:45)
[2019-05-16 15:55] VITALS: BP 135/75
[2019-05-16 16:01] LABS: BASOPHILS # (AUTO) 0.1 X10'3 (0-0.2); BASOPHILS % (AUTO) 0.6 % (0-1); EOSINOPHILS # (AUTO) 0.3 X10'3 (0-0.9); EOSINOPHILS % (AUTO) 3.1 % (0-6); HEMATOCRIT 45.4 % (42.0-52.0); LYMPHOCYTES # (AUTO) 1.7 X10'3 (1.1-4.8); LYMPHOCYTES % (AUTO) 15.6 % (21-51); MEAN CORPUSCULAR HEMOGLOBIN 34.1 PG (27.0-31.0); MEAN CORPUSCULAR HGB CONC 35.2 g/dL (33.0-36.5); MEAN CORPUSCULAR VOLUME 96.9 FL (78-98); MEAN PLATELET VOLUME 8.7 FL (7.4-10.4); MONOCYTES # (AUTO) 0.8 X10'3 (0-0.9); MONOCYTES % (AUTO) 6.9 % (2-12); NEUTROPHILS # (AUTO) 8.1 X10'3 (1.8-7.7); NEUTROPHILS % (AUTO) 73.8 % (42-75); PLATELET COUNT 281 X10'3 (140-440); RED BLOOD COUNT 4.69 X10'6 (4.70-6.10); WHITE BLOOD COUNT 11.1 X10'3 (4.5-11.0)
[2019-05-16 16:23] LABS: ALANINE AMINOTRANSFERASE 40 U/L (12-78); ALBUMIN 3.4 G/DL (3.4-5.0); ALKALINE PHOSPHATASE 97 IU/L (46-116); ANION GAP 7 (8-16); ASPARTATE AMINO TRANSFERASE 16 U/L (10-37); BILIRUBIN,TOTAL 0.3 MG/DL (0.1-1.0); BLOOD UREA NITROGEN 14 MG/DL (7-18); BUN/CREATININE RATIO 13.5 (5.4-32.0); CALCIUM 8.9 MG/DL (8.5-10.1); CHLORIDE 107 MMOL/L (99-107); CREATININE 1.04 MG/DL (0.60-1.10); GLUCOSE 101 MG/DL (70-104); LIPASE 111 U/L (73-393); POTASSIUM 3.8 MMOL/L (3.5-5.1); SODIUM 142 MMOL/L (135-145); TOTAL CARBON DIOXIDE 27.7 MMOL/L (24-32); TOTAL PROTEIN 6.8 G/DL (6.4-8.2); eGFR 73 ML/MIN
[2019-05-16] MEDS ORDERED: ONDA4TAB6 PO (16:52)
[2019-05-16] MEDS ORDERED: DICY10CA88 PO (16:52)
== END 2019-05-16 17:41 | disposition home or self-care (01) ==
LOC: ER 14:27
DX: R11.2 Nausea with vomiting, unspecified (principal); R19.7 Diarrhea, unspecified; G43.909 Migraine, unspecified, not intractable, without status migrainosus; I25.10 Atherosclerotic heart disease of native coronary artery without angina pectoris; I10 Essential (primary) hypertension; I25.2 Old myocardial infarction; J44.9 Chronic obstructive pulmonary disease, unspecified; F17.200 Nicotine dependence, unspecified, uncomplicated; F12.90 Cannabis use, unspecified, uncomplicated; F15.10 Other stimulant abuse, uncomplicated; G89.29 Other chronic pain; F41.9 Anxiety disorder, unspecified; F32.9 Major depressive disorder, single episode, unspecified; Z98.61 Coronary angioplasty status; Z86.73 Personal history of transient ischemic attack (TIA), and cerebral infarction without residual deficits; Z98.890 Other specified postprocedural states; Z79.82 Long term (current) use of aspirin; Z79.899 Other long term (current) drug therapy; Z72.89 Other problems related to lifestyle
CPT/HCPCS: 36415; 80053; 83690; 85025; 96374; 99283; J2405; J7030

== ENCOUNTER 2020-01-14 18:07 | Emergency (ER) | payer MEDICARE, MEDICAID ==
[~2020-01-14] VITALS: Ht 177.8 cm; Wt 104.8 kg
[~2020-01-14 18:07] MED LIST changes: +ONDA4TAB6 PO; -PANT40TA4 PO; +PANT40TA54 PO
[2020-01-14 19:43] VITALS: BP 149/115
== END 2020-01-14 19:42 | disposition home or self-care (01) ==
LOC: ER 18:08
DX: Q89.2 Congenital malformations of other endocrine glands (principal); G43.909 Migraine, unspecified, not intractable, without status migrainosus; R42 Dizziness and giddiness; I25.10 Atherosclerotic heart disease of native coronary artery without angina pectoris; I11.9 Hypertensive heart disease without heart failure; J44.9 Chronic obstructive pulmonary disease, unspecified; F41.9 Anxiety disorder, unspecified; F32.9 Major depressive disorder, single episode, unspecified; K57.90 Diverticulosis of intestine, part unspecified, without perforation or abscess without bleeding; K57.92 Diverticulitis of intestine, part unspecified, without perforation or abscess without bleeding; K59.00 Constipation, unspecified; F12.10 Cannabis abuse, uncomplicated; F15.10 Other stimulant abuse, uncomplicated; Z79.899 Other long term (current) drug therapy
CPT/HCPCS: 10160; 99281; 99284

== ENCOUNTER 2020-01-20 00:19 | Emergency (ER) | payer MEDICARE, MEDICAID ==
[~2020-01-20] VITALS: Ht 177.8 cm; Wt 103.0 kg
--- NOTE | 2020-01-20 00:39 | NUR ---
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 He said that it went down all by itself. It was the size of a walnut the last time, and wanted it drained. It went down on its own.
[2020-01-20 00:46] LABS: BASOPHILS # (AUTO) 0.1 X10'3 (0-0.2); BASOPHILS % (AUTO) 0.5 % (0-1); EOSINOPHILS # (AUTO) 0.5 X10'3 (0-0.9); EOSINOPHILS % (AUTO) 4.3 % (0-6); HEMATOCRIT 51.1 % (42.0-52.0); HEMOGLOBIN 17.4 g/dl (14.0-17.9); LYMPHOCYTES % (AUTO) 27.3 % (21-51); MEAN CORPUSCULAR HEMOGLOBIN 33.5 PG (27.0-31.0); MEAN CORPUSCULAR VOLUME 98.7 FL (78-98); MEAN PLATELET VOLUME 8.9 FL (7.4-10.4); MONOCYTES % (AUTO) 9.7 % (2-12); NEUTROPHILS # (AUTO) 6.3 X10'3 (1.8-7.7); NEUTROPHILS % (AUTO) 58.2 % (42-75); PLATELET COUNT 229 X10'3 (140-440); RED BLOOD COUNT 5.18 X10'6 (4.70-6.10); RED CELL DISTRIBUTION WIDTH 13.1 % (11.5-14.5); WHITE BLOOD COUNT 10.8 X10'3 (4.5-11.0)
[2020-01-20 01:01] LABS: ALANINE AMINOTRANSFERASE 40 U/L (12-78); ALBUMIN 3.6 G/DL (3.4-5.0); ALBUMIN/GLOBULIN RATIO 1.1 (1.1-1.5); ALKALINE PHOSPHATASE 74 IU/L (46-116); ANION GAP 9 (8-16); ASPARTATE AMINO TRANSFERASE 29 U/L (10-37); BILIRUBIN,TOTAL 0.4 MG/DL (0.1-1.0); BLOOD UREA NITROGEN 19 MG/DL (7-18); BUN/CREATININE RATIO 13.6 (5.4-32.0); CALCIUM 8.7 MG/DL (8.5-10.1); CHLORIDE 106 MMOL/L (99-107); GLUCOSE 102 MG/DL (70-104); POTASSIUM 3.8 MMOL/L (3.5-5.1); SODIUM 139 MMOL/L (135-145); TOTAL CARBON DIOXIDE 24.2 MMOL/L (24-32); eGFR 52 ML/MIN
[2020-01-20] MEDS ORDERED: aspirin 81mg tab.chew PO ONE (01:10)
[2020-01-20 01:21] VITALS: BP 121/66
== END 2020-01-20 01:26 | disposition home or self-care (01) ==
LOC: ER 00:19
DX: R07.89 Other chest pain (principal); G43.909 Migraine, unspecified, not intractable, without status migrainosus; I25.10 Atherosclerotic heart disease of native coronary artery without angina pectoris; I10 Essential (primary) hypertension; I25.2 Old myocardial infarction; J44.9 Chronic obstructive pulmonary disease, unspecified; G89.29 Other chronic pain; F17.200 Nicotine dependence, unspecified, uncomplicated; Z86.73 Personal history of transient ischemic attack (TIA), and cerebral infarction without residual deficits; Z95.5 Presence of coronary angioplasty implant and graft; Z98.890 Other specified postprocedural states; Z79.899 Other long term (current) drug therapy; Z79.82 Long term (current) use of aspirin
CPT/HCPCS: 36415; 71045; 80053; 83880; 84484; 85025; 93005; 99285

== ENCOUNTER 2020-02-05 12:22 | Emergency (ER) | payer MEDICARE, MEDICAID ==
[~2020-02-05] VITALS: Ht 172.7 cm; Wt 86.4 kg
[2020-02-05] MEDS ORDERED: DOXY100C2 PO (13:19)
[2020-02-05] MEDS ORDERED: BENZ-16 PO (13:19)
[2020-02-05 13:30] VITALS: BP 144/102
== END 2020-02-05 13:53 | disposition home or self-care (01) ==
LOC: ER 12:23
DX: J40 Bronchitis, not specified as acute or chronic (principal); F12.10 Cannabis abuse, uncomplicated; F15.90 Other stimulant use, unspecified, uncomplicated; G43.909 Migraine, unspecified, not intractable, without status migrainosus; I25.10 Atherosclerotic heart disease of native coronary artery without angina pectoris; I10 Essential (primary) hypertension; G89.29 Other chronic pain; Z98.61 Coronary angioplasty status; Z98.890 Other specified postprocedural states; Z79.82 Long term (current) use of aspirin; Z79.2 Long term (current) use of antibiotics; Z79.899 Other long term (current) drug therapy
CPT/HCPCS: 99283

== ENCOUNTER 2020-02-12 13:16 | Emergency (ER) | payer MEDICARE, MEDICAID ==
[~2020-02-12] VITALS: Ht 177.8 cm; Wt 102.3 kg
[~2020-02-12 13:16] MED LIST changes: +BENZ-16 PO; +DOXY100C2 PO
[2020-02-12 13:33] VITALS: BP 136/75
[2020-02-12] MEDS ORDERED: TRIA15CR61 TOP (13:56)
[2020-02-12] MEDS ORDERED: PERM60CR19 TOP (13:56)
== END 2020-02-12 14:46 | disposition home or self-care (01) ==
LOC: ER 13:17
DX: R21 Rash and other nonspecific skin eruption (principal); G43.909 Migraine, unspecified, not intractable, without status migrainosus; I25.10 Atherosclerotic heart disease of native coronary artery without angina pectoris; I10 Essential (primary) hypertension; J44.9 Chronic obstructive pulmonary disease, unspecified; G89.29 Other chronic pain; F17.200 Nicotine dependence, unspecified, uncomplicated; F12.90 Cannabis use, unspecified, uncomplicated; F15.90 Other stimulant use, unspecified, uncomplicated; Z98.61 Coronary angioplasty status; Z98.890 Other specified postprocedural states; Z86.73 Personal history of transient ischemic attack (TIA), and cerebral infarction without residual deficits; Z79.82 Long term (current) use of aspirin; Z79.2 Long term (current) use of antibiotics; Z79.899 Other long term (current) drug therapy
CPT/HCPCS: 99283

== ENCOUNTER 2020-07-22 13:48 | Emergency (ER) | payer BC, MEDICAID ==
[~2020-07-22] VITALS: Ht 177.8 cm; Wt 93.9 kg
[~2020-07-22 13:48] MED LIST changes: -BENZ-16 PO; -DOXY100C2 PO; -LISI-600 PO; +LISI20TA28 PO; +PERM60CR19 TOP
[2020-07-22] MEDS ORDERED: DIAZ10TA4 PO (14:32)
[2020-07-22] MEDS ORDERED: TEST200V10 IM (14:33)
[2020-07-22 15:27] LABS: BASOPHILS % (AUTO) 0.5 % (0-1); EOSINOPHILS # (AUTO) 0.5 X10'3 (0-0.9); EOSINOPHILS % (AUTO) 5.3 % (0-6); HEMATOCRIT 46.9 % (42.0-52.0); HEMOGLOBIN 16.4 g/dl (14.0-17.9); LYMPHOCYTES # (AUTO) 2.5 X10'3 (1.1-4.8); LYMPHOCYTES % (AUTO) 26.9 % (21-51); MEAN CORPUSCULAR HEMOGLOBIN 34.4 PG (27.0-31.0); MEAN CORPUSCULAR VOLUME 98.3 FL (78-98); MEAN PLATELET VOLUME 8.2 FL (7.4-10.4); MONOCYTES # (AUTO) 0.8 X10'3 (0-0.9); MONOCYTES % (AUTO) 8.3 % (2-12); NEUTROPHILS # (AUTO) 5.6 X10'3 (1.8-7.7); PLATELET COUNT 287 X10'3 (140-440); RED BLOOD COUNT 4.77 X10'6 (4.70-6.10); RED CELL DISTRIBUTION WIDTH 13.8 % (11.5-14.5); WHITE BLOOD COUNT 9.4 X10'3 (4.5-11.0)
[2020-07-22 15:37] VITALS: BP 171/112
[2020-07-22 15:40] LABS: PARTIAL THROMBOPLASTIN TIME 31 SECONDS (22-32)
[2020-07-22 15:42] LABS: ALANINE AMINOTRANSFERASE 38 U/L (12-78); ALBUMIN 3.8 G/DL (3.4-5.0); ALBUMIN/GLOBULIN RATIO 1.1 (1.1-1.5); ALKALINE PHOSPHATASE 84 IU/L (46-116); ANION GAP 10 (8-16); ASPARTATE AMINO TRANSFERASE 20 U/L (10-37); BILIRUBIN,TOTAL 0.3 MG/DL (0.1-1.0); BLOOD UREA NITROGEN 9 MG/DL (7-18); BUN/CREATININE RATIO 8.8 (5.4-32.0); CALCIUM 8.9 MG/DL (8.5-10.1); CHLORIDE 107 MMOL/L (99-107); CREATININE 1.02 MG/DL (0.60-1.10); GLUCOSE 94 MG/DL (70-104); POTASSIUM 3.6 MMOL/L (3.5-5.1); SODIUM 142 MMOL/L (135-145); TOTAL CARBON DIOXIDE 25.5 MMOL/L (24-32); TOTAL PROTEIN 7.2 G/DL (6.4-8.2); eGFR 74 ML/MIN
[2020-07-22 15:54] LABS: C-REACTIVE PROTEIN 0.06 MG/DL (0.0-0.5)
[2020-07-22] MEDS ORDERED: IBUP-1984 PO (15:59)
== END 2020-07-22 16:09 | disposition home or self-care (01) ==
LOC: ER 13:50
DX: M77.9 Enthesopathy, unspecified (principal); M25.521 Pain in right elbow; M25.531 Pain in right wrist; I25.2 Old myocardial infarction; I11.0 Hypertensive heart disease with heart failure; J44.9 Chronic obstructive pulmonary disease, unspecified; G89.29 Other chronic pain; F41.9 Anxiety disorder, unspecified; F32.9 Major depressive disorder, single episode, unspecified; F12.90 Cannabis use, unspecified, uncomplicated; R79.1 Abnormal coagulation profile; F15.90 Other stimulant use, unspecified, uncomplicated; Z98.61 Coronary angioplasty status; Z98.890 Other specified postprocedural states; Z86.73 Personal history of transient ischemic attack (TIA), and cerebral infarction without residual deficits; Z79.899 Other long term (current) drug therapy; Z79.82 Long term (current) use of aspirin
CPT/HCPCS: 36415; 73080; 80053; 85025; 85610; 85651; 85730; 86140; 99284

== ENCOUNTER 2020-11-15 08:42 | Emergency (ER) | payer BC, MEDICAID ==
[~2020-11-15] VITALS: Ht 177.8 cm; Wt 92.8 kg
[~2020-11-15 08:42] MED LIST changes: -ASPI-1265 PO; -BUDE10.2 INH; -CARV6.253 PO; +DIAZ10TA4 PO; -GUAI100L97 PO; -NICO-631 TD; -ONDA4TAB6 PO; -PANT40TA54 PO; -PERM60CR19 TOP; -ROSU5TAB PO; -TEMA30CA5 PO; +TEST200V10 IM
[2020-11-15 09:10] VITALS: BP 122/70
[2020-11-15] MEDS ORDERED: SULF1TAB45 PO (09:13)
[2020-11-15] MEDS ORDERED: CEPH250T PO (09:13)
== END 2020-11-15 09:12 | disposition home or self-care (01) ==
LOC: ER 08:43
DX: L08.9 Local infection of the skin and subcutaneous tissue, unspecified (principal); G43.909 Migraine, unspecified, not intractable, without status migrainosus; I25.10 Atherosclerotic heart disease of native coronary artery without angina pectoris; I10 Essential (primary) hypertension; I25.2 Old myocardial infarction; J44.9 Chronic obstructive pulmonary disease, unspecified; G89.29 Other chronic pain; F41.9 Anxiety disorder, unspecified; F32.9 Major depressive disorder, single episode, unspecified; F12.90 Cannabis use, unspecified, uncomplicated; F15.90 Other stimulant use, unspecified, uncomplicated; Z86.73 Personal history of transient ischemic attack (TIA), and cerebral infarction without residual deficits; Z98.890 Other specified postprocedural states; Z79.2 Long term (current) use of antibiotics; Z79.899 Other long term (current) drug therapy
CPT/HCPCS: 99283

== ENCOUNTER 2021-05-03 10:13 | Emergency (ER) | payer BC, MEDICAID ==
[~2021-05-03] VITALS: Ht 177.8 cm; Wt 92.1 kg
[~2021-05-03 10:13] MED LIST changes: -TEST200V10 IM; +TEST200V33 IM
[2021-05-03 10:16] VITALS: BP 149/99
--- NOTE | 2021-05-03 10:35 | NUR ---
L FA has redness and swelling. +Hot to touch.
[2021-05-03 10:52] LABS: BASOPHILS % (AUTO) 0.4 % (0-1); EOSINOPHILS # (AUTO) 0.5 X10'3 (0-0.9); EOSINOPHILS % (AUTO) 5.1 % (0-6); HEMATOCRIT 51.3 % (42.0-52.0); HEMOGLOBIN 17.6 g/dl (14.0-17.9); LYMPHOCYTES # (AUTO) 1.9 X10'3 (1.1-4.8); LYMPHOCYTES % (AUTO) 20.5 % (21-51); MEAN CORPUSCULAR HEMOGLOBIN 32.6 PG (27.0-31.0); MEAN CORPUSCULAR HGB CONC 34.3 g/dL (33.0-36.5); MEAN CORPUSCULAR VOLUME 95.1 FL (78-98); MEAN PLATELET VOLUME 8.4 FL (7.4-10.4); MONOCYTES # (AUTO) 0.8 X10'3 (0-0.9); MONOCYTES % (AUTO) 9.1 % (2-12); NEUTROPHILS # (AUTO) 5.9 X10'3 (1.8-7.7); NEUTROPHILS % (AUTO) 64.9 % (42-75); PLATELET COUNT 270 X10'3 (140-440); RED CELL DISTRIBUTION WIDTH 13.7 % (11.5-14.5); WHITE BLOOD COUNT 9.1 X10'3 (4.5-11.0)
[2021-05-03 11:03] LABS: ALANINE AMINOTRANSFERASE 33 U/L (12-78); ALBUMIN 3.7 G/DL (3.4-5.0); ALBUMIN/GLOBULIN RATIO 1.2 (1.1-1.5); ALKALINE PHOSPHATASE 91 IU/L (46-116); ANION GAP 11 (8-16); BILIRUBIN,TOTAL 0.7 MG/DL (0.1-1.0); BLOOD UREA NITROGEN 13 MG/DL (7-18); BUN/CREATININE RATIO 11.4 (5.4-32.0); CALCIUM 8.7 MG/DL (8.5-10.1); CHLORIDE 105 MMOL/L (99-107); CREATININE 1.14 MG/DL (0.60-1.10); GLUCOSE 144 MG/DL (70-104); SODIUM 139 MMOL/L (135-145); TOTAL CARBON DIOXIDE 23.4 MMOL/L (24-32); TOTAL PROTEIN 6.7 G/DL (6.4-8.2); eGFR 65 ML/MIN
[2021-05-03 11:05] LABS: ASPARTATE AMINO TRANSFERASE 29 U/L (10-37); POTASSIUM 4.3 MMOL/L (3.5-5.1)
[2021-05-03] MEDS ORDERED: CEPH250T PO (11:52)
--- NOTE | 2021-05-03 12:30 | NUR ---
Pt given and understands d/c instructions. Ambulatory with a steady gait.
[2021-05-03] MEDS: ketorolac trometh inj. 60 MG/2 ML VIAL IM ONE (12:32)
== END 2021-05-03 12:30 | disposition home or self-care (01) ==
LOC: ER 10:14
DX: L03.114 Cellulitis of left upper limb (principal); G43.909 Migraine, unspecified, not intractable, without status migrainosus; I25.10 Atherosclerotic heart disease of native coronary artery without angina pectoris; I10 Essential (primary) hypertension; I25.2 Old myocardial infarction; J44.9 Chronic obstructive pulmonary disease, unspecified; F41.9 Anxiety disorder, unspecified; F32.A Depression, unspecified; F12.90 Cannabis use, unspecified, uncomplicated; F15.90 Other stimulant use, unspecified, uncomplicated; Z86.73 Personal history of transient ischemic attack (TIA), and cerebral infarction without residual deficits; Z98.890 Other specified postprocedural states; Z79.899 Other long term (current) drug therapy
CPT/HCPCS: 36415; 76705; 80053; 85025; 85651; 96372; 99284; J1885

== ENCOUNTER 2021-06-03 17:15 | Emergency (ER) | payer BC, MEDICAID ==
[~2021-06-03] VITALS: Ht 177.8 cm; Wt 91.0 kg
[2021-06-03 18:05] VITALS: BP 97/57
[2021-06-03] MEDS ORDERED: cyclobenzaprine 10mg tablet PO ONE (18:35)
[2021-06-03] MEDS ORDERED: ibuprofen tablet 400 MG TABLET PO ONE (18:35)
[2021-06-03] MEDS ORDERED: CYCL-1 PO (18:39)
== END 2021-06-03 18:56 | disposition home or self-care (01) ==
LOC: ER 18:03
DX: M54.2 Cervicalgia (principal); M54.9 Dorsalgia, unspecified; G43.909 Migraine, unspecified, not intractable, without status migrainosus; I25.10 Atherosclerotic heart disease of native coronary artery without angina pectoris; I10 Essential (primary) hypertension; I25.2 Old myocardial infarction; J44.9 Chronic obstructive pulmonary disease, unspecified; G89.29 Other chronic pain; F12.90 Cannabis use, unspecified, uncomplicated; F15.90 Other stimulant use, unspecified, uncomplicated; Z87.19 Personal history of other diseases of the digestive system; Z95.5 Presence of coronary angioplasty implant and graft; Z98.890 Other specified postprocedural states; Z86.73 Personal history of transient ischemic attack (TIA), and cerebral infarction without residual deficits; Z79.899 Other long term (current) drug therapy
CPT/HCPCS: 99283

== ENCOUNTER 2022-08-30 09:30 | Emergency (ER) | payer BC, MEDICAID ==
[~2022-08-30] VITALS: Ht 177.8 cm; Wt 90.0 kg
[~2022-08-30 09:30] MED LIST changes: +CYCL-1 PO
--- NOTE | 2022-08-30 09:45 | NUR ---
PRESENT TO EXAMINE ORAL SWELLING -
[2022-08-30 09:59] LABS: BASOPHILS % (AUTO) 0.4 % (0-1); EOSINOPHILS # (AUTO) 0.8 X10'3 (0-0.9); EOSINOPHILS % (AUTO) 8.1 % (0-6); HEMATOCRIT 54.1 % (42.0-52.0); LYMPHOCYTES # (AUTO) 1.8 X10'3 (1.1-4.8); LYMPHOCYTES % (AUTO) 19.2 % (21-51); MEAN CORPUSCULAR HEMOGLOBIN 33.4 PG (27.0-31.0); MEAN CORPUSCULAR HGB CONC 34.4 g/dL (33.0-36.5); MEAN PLATELET VOLUME 8.6 FL (7.4-10.4); MONOCYTES # (AUTO) 0.7 X10'3 (0-0.9); MONOCYTES % (AUTO) 7.7 % (2-12); NEUTROPHILS % (AUTO) 64.6 % (42-75); PLATELET COUNT 225 X10'3 (140-440); RED BLOOD COUNT 5.58 X10'6 (4.70-6.10); WHITE BLOOD COUNT 9.3 X10'3 (4.5-11.0)
[2022-08-30 10:05] LABS: HEMOGLOBIN 18.7 g/dl (14.0-17.9)
[2022-08-30] MEDS ORDERED: dexamethasone sod phosphate 10mg/ml inj IV STA (10:08)
[2022-08-30] MEDS ORDERED: normal saline 1000ml 1,000 ML IV ONE (10:10)
[2022-08-30] MEDS ORDERED: ketorolac trometh. 30mg/ml inj. IV ONE (10:15)
[2022-08-30 10:23] LABS: ALANINE AMINOTRANSFERASE 35 U/L (12-78); ALBUMIN 3.7 G/DL (3.4-5.0); ALBUMIN/GLOBULIN RATIO 1.1 (1.1-1.5); ALKALINE PHOSPHATASE 85 IU/L (46-116); ANION GAP 10 (8-16); ASPARTATE AMINO TRANSFERASE 20 U/L (10-37); BILIRUBIN,TOTAL 0.6 MG/DL (0.1-1.0); BLOOD UREA NITROGEN 13 MG/DL (7-18); BUN/CREATININE RATIO 11.8 (10.0-20.0); CALCIUM 8.4 MG/DL (8.5-10.1); CHLORIDE 105 MMOL/L (99-107); GLUCOSE 120 MG/DL (70-104); POTASSIUM 4.3 MMOL/L (3.5-5.1); SODIUM 140 MMOL/L (135-145); TOTAL CARBON DIOXIDE 24.8 MMOL/L (24-32); eGFR 68 ML/MIN
[2022-08-30] MEDS ORDERED: PRED20TA PO (12:35)
[2022-08-30 12:51] VITALS: BP 133/86
--- NOTE | 2022-08-30 12:56 | NUR ---
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
== END 2022-08-30 12:54 | disposition home or self-care (01) ==
LOC: ER 09:30
DX: K12.2 Cellulitis and abscess of mouth (principal); G43.909 Migraine, unspecified, not intractable, without status migrainosus; I10 Essential (primary) hypertension; J44.9 Chronic obstructive pulmonary disease, unspecified; F12.90 Cannabis use, unspecified, uncomplicated; F15.20 Other stimulant dependence, uncomplicated
CPT/HCPCS: 36415; 80053; 83880; 84145; 84484; 85025; 87081; 87880; 93005; 96361; 96374; 96375; 99284; J1100; J1885; J7030

== ENCOUNTER 2022-09-16 20:07 | Emergency (ER) | payer BC, MEDICAID ==
[~2022-09-16] VITALS: Ht 172.7 cm; Wt 90.0 kg
[2022-09-16 20:21] VITALS: BP 108/57
[2022-09-16 21:41] LABS: BASOPHILS # (AUTO) 0.1 X10'3 (0-0.2); BASOPHILS % (AUTO) 0.6 % (0-1); EOSINOPHILS # (AUTO) 0.5 X10'3 (0-0.9); HEMATOCRIT 41.4 % (42.0-52.0); LYMPHOCYTES # (AUTO) 1.6 X10'3 (1.1-4.8); LYMPHOCYTES % (AUTO) 9.9 % (21-51); MEAN CORPUSCULAR HEMOGLOBIN 33.2 PG (27.0-31.0); MEAN CORPUSCULAR HGB CONC 33.9 g/dL (33.0-36.5); MEAN PLATELET VOLUME 8.9 FL (7.4-10.4); MONOCYTES # (AUTO) 1.6 X10'3 (0-0.9); MONOCYTES % (AUTO) 9.7 % (2-12); NEUTROPHILS # (AUTO) 12.5 X10'3 (1.8-7.7); NEUTROPHILS % (AUTO) 76.8 % (42-75); PLATELET COUNT 221 X10'3 (140-440); RED BLOOD COUNT 4.22 X10'6 (4.70-6.10); RED CELL DISTRIBUTION WIDTH 14.2 % (11.5-14.5); WHITE BLOOD COUNT 16.3 X10'3 (4.5-11.0)
[2022-09-16 21:59] LABS: ALANINE AMINOTRANSFERASE 75 U/L (12-78); ALBUMIN 3.5 G/DL (3.4-5.0); ALBUMIN/GLOBULIN RATIO 1.3 (1.1-1.5); ALKALINE PHOSPHATASE 74 IU/L (46-116); ANION GAP 13 (8-16); ASPARTATE AMINO TRANSFERASE 90 U/L (10-37); BILIRUBIN,TOTAL 0.8 MG/DL (0.1-1.0); BLOOD UREA NITROGEN 55 MG/DL (7-18); BUN/CREATININE RATIO 19.3 (10.0-20.0); CHLORIDE 104 MMOL/L (99-107); CREATININE 2.85 MG/DL (0.60-1.10); GLUCOSE 118 MG/DL (70-104); POTASSIUM 3.8 MMOL/L (3.5-5.1); SODIUM 139 MMOL/L (135-145); TOTAL CARBON DIOXIDE 22.5 MMOL/L (24-32); TOTAL PROTEIN 6.3 G/DL (6.4-8.2); eGFR 23 ML/MIN
[2022-09-16 22:04] LABS: MAGNESIUM 2.2 MG/DL (1.5-2.4)
== END 2022-09-17 00:55 | disposition left against medical advice (07) ==
LOC: ER 20:07
DX: R10.9 Unspecified abdominal pain (principal); Z53.21 Procedure and treatment not carried out due to patient leaving prior to being seen by health care provider
CPT/HCPCS: 36415; 71045; 80053; 83735; 83880; 84484; 85025; 93005; 99281

== ENCOUNTER 2024-07-10 11:44 | Emergency (ER) | payer BC, MEDICAID ==
[~2024-07-10] VITALS: Ht 177.8 cm; Wt 77.0 kg
[2024-07-10 11:46] VITALS: BP 121/56; PULSE 92; RESP 17; TEMP 97.6; O2SAT 98
--- NOTE | 2024-07-10 13:51 | Physician Documentation ---
History of Present Illness ~ Chief Complaint: Multiple Medical Complaints Stated Complaint: LOWER QUADRANT PAIN BACK [facility] Source: patient Mode of Arrival: POV Exam Limitations: no limitations HPI 63 y/o male who ambulates into triage room with c/o lower back pain. Patient reports he is not concerned about his back but is concerned about his kidney or liver and is wondering if his pain could be coming from either location due to the number of supplements he takes for fitness/working out. He denies fever, vomiting, tea colored urine, recent injury, abdominal pain. Medication Reconciliation Allergies: Coded Allergies: No Known Allergies (Unverified , 11/15/20) Scheduled Buspirone HCl (Buspirone HCl), 1 TABLET PO BID, (Reported) Cyclobenzaprine* (Cyclobenzaprine*), 1 TAB PO HS Diazepam (Diazepam), 1 TAB PO TID PRN, (Reported) Lisinopril (Lisinopril), 20 MG PO DAILY, (Reported) Testosterone Cypionate (TESTOSTERONE CYPIONATE 200mg/ml 10ml vial), 1 ML IM Q2W, (Reported) Trazodone HCl (Trazodone HCl), 1 TAB PO HS, (Reported) Scheduled PRN Albuterol Sulfate (Ventolin Hfa), 2 PUFFS INH Q8HPRN PRN for SOB or wheezing Nitroglycerin SL* (Nitrostat SL*), 0.4 MG SL Q5MIN PRN for chest pain Past Medical History Past Medical History: CVA/TIA/Stroke, Headache, Migraine, Vertigo, Coronary Artery Disease, Hypertension, Myocardial Infarction, COPD, Constipation, Diverti culitis, Diverticulosis, Chronic Pain, Chronic Back Pain, Anxiety, Depression Past Surgical History: angioplasty, orthopedic surgeries, other Other Past Surgical History: thyroid surgery Other Past Family History: NONE Alcohol Use: None Drug Use: marijuana, methamphetamine Lives with: Other Lives In: Home Occupation: disabled Physical Exam Physical Exam Vital Signs: Temperature: 97.6, Heart Rate: 92, Respiratory Rate: 17, BP: 121/56, Pulse Oximetry: 98, Weight: 77.000 Physical Exam General Appearance: Alert, WD/WN. NAD. HEENT: NCAT, PERRL, EOMI. Neck: Supple, trachea midline. Lungs: Breathing unlabored Extremities: Normal inspection. No edema. Skin: Warm/dry, normal color-no jaundice. Neurological: Alert and oriented x4, normal gait into triage room and out of triage room. Psychiatric: Affect congruent with mood. Progress Results/Orders Results/Orders Vital Signs 07/10/24 11:46 Temp 97.6 Pulse 92 Resp 17 B/P (MAP) 121/56 Pulse Ox 98 Medical Decision Making Differential Diagnosis Patient did not complain of tea-colored urine, fevers, abdominal pain was able to ambulate into the triage room without assistance patient was felt to be stable to wait for further evaluation when a room becomes available. Departure Time of Disposition: 13:50 Disposition: 07 LEFT AWOL/ELOPED Impression: Primary Impression: Back pain Qualified Codes: M54.50 - Low back pain, unspecified Condition: Fair Additional Instructions: Patient left after medical screening exam Referrals: NO PRIMARY CARE PROVIDER (PCP) Signature Scribe Signature: x Attestation: BOBY Quintana Jul 10, 2024 13:51
== END 2024-07-10 15:16 | disposition left against medical advice (07) ==
LOC: ER 11:45
DX: M54.50 Low back pain, unspecified (principal); I10 Essential (primary) hypertension; I25.10 Atherosclerotic heart disease of native coronary artery without angina pectoris; F41.9 Anxiety disorder, unspecified; F32.A Depression, unspecified; J44.9 Chronic obstructive pulmonary disease, unspecified; F12.90 Cannabis use, unspecified, uncomplicated; F15.90 Other stimulant use, unspecified, uncomplicated; Z86.73 Personal history of transient ischemic attack (TIA), and cerebral infarction without residual deficits
CPT/HCPCS: 99281

== ENCOUNTER 2024-07-19 18:24 | Emergency (ER) | payer BC, MEDICAID ==
[~2024-07-19] VITALS: Ht 177.8 cm; Wt 96.4 kg
[2024-07-19 18:26] VITALS: BP 137/107; PULSE 68; TEMP 98; O2SAT 96
[2024-07-19 18:35] VITALS: RESP 16
--- NOTE | 2024-07-19 18:52 | Physician Documentation ---
History of Present Illness ~ Chief Complaint: Foreign body Stated Complaint: CHOKING ON LICIORCE Time Seen by MD: 18:30 Primary Medical Doctor: Dr. Shawanda EMERSON (ENT) Mode of Arrival: POV, Ambulatory HPI Patient is seen today with complaints of dysphagia and history of dysphagia and states he was eating some liquids garcia or ear and feels it got stuck in his t hroat. Patient denies any shortness of breath or stridor or chest pain or abdominal pain or nausea, vomiting, diarrhea. Patient has no other concern or complaint at this time. Medication Reconciliation Allergies: Coded Allergies: No Known Allergies (Unverified , 11/15/20) Scheduled Buspirone HCl (Buspirone HCl), 1 TABLET PO BID, (Reported) Cyclobenzaprine* (Cyclobenzaprine*), 1 TAB PO HS Diazepam (Diazepam), 1 TAB PO TID PRN, (Reported) Lisinopril (Lisinopril), 20 MG PO DAILY, (Reported) Testosterone Cypionate (TESTOSTERONE CYPIONATE 200mg/ml 10ml vial), 1 ML IM Q2W, (Reported) Trazodone HCl (Trazodone HCl), 1 TAB PO HS, (Reported) Scheduled PRN Albuterol Sulfate (Ventolin Hfa), 2 PUFFS INH Q8HPRN PRN for SOB or wheezing Nitroglycerin SL* (Nitrostat SL*), 0.4 MG SL Q5MIN PRN for chest pain Past Medical History Past Medical History: CVA/TIA/Stroke, Headache, Migraine, Vertigo, Coronary Artery Disease, Hypertension, Myocardial Infarction, COPD, Constipation, Diverticulitis, Diverticulosis, Chronic Pain, Chronic Back Pain, Anxiety, Depression Past Surgical History: angioplasty, orthopedic surgeries, other Other Past Surgical History: thyroid surgery Other Past Family History: NONE Alcohol Use: None Drug Use: marijuana, methamphetamine Lives with: Other Lives In: Home Occupation: disabled Review of Systems Constitutional: Denies: chills, fever, weakness Eyes: Denies: pain, blurred vision ENT: Denies: ear pain, nose pain, throat pain, mouth pain Respiratory: Denies: cough, shortness of breath Cardiovascular: Denies: chest pain, palpitations Gastrointestinal: Denies: abdominal pain, nausea, vomiting Genitourinary: Denies: burning, dysuria Male Genitalia: Denies: penile discharge, testicular pain Neurological: Denies: headache, dizziness Musculoskeletal: Denies: pain, swelling Integumentary: Denies: rash, lesions Allergic/Immunologic: Denies: hives, itching Hematologic/Lymphatic: Denies: no symptoms reported Psychiatric: Denies: depression, anxiety Physical Exam Vital Signs: Temperature: 98.0, Heart Rate: 68, Respiratory Rate: 16, BP: 137/107, Pulse Oximetry: 96, Weight: 96.360 Oxygen Flow Rate: 0 Physical Exam General: Awake and Alert, no acute distress. HEENT: Conjunctiva pink, Sclera clear, Mucus Membranes moist. Neck: Supple without masses and tenderness. Resp: Unlabored. Lungs clear to auscultation bilaterally. Heart: Regular Rate and rhythm, normal S1 and S2 without murmur, rub or gallop. Abdomen: Soft and non tender no organomegaly Extremities: No cyanosis,clubbing or edema. Skin: Warm and Dry. Progress Results/Orders Results/Orders Vital Signs 07/19/24 07/19/24 18:26 18:35 Temp 98.0 Pulse 68 Resp 22 16 B/P (MAP) 137/107 Pulse Ox 96 O2 Flow Rate 0 Medical Decision Making Findings Patient is seen today with complaints of dysphagia and history of dysphagia and states he was eating some liquids garcia or ear and feels it got stuck in his throat. Patient denies any shortness of breath or stridor or chest pain or abdominal pain or nausea, vomiting, diarrhea. Patient has no other concern or complaint at this time. Patient was given some sprite soda and was able to swallow successfully and states he felt the licorice pass through and go down successfully. Patient is very grateful for the passage of the licorice. Shared decision-making utilized today. Patient will return to ED with any worsening, concerning or changing symptoms. Departure Disposition: HOME / SELF CARE / HOMELESS Impression: Primary Impression: Dysphagia Qualified Codes: R13.10 - Dysphagia, unspecified Additional Impression: Food sticks on swallowing Condition: Improved Discharge Instructions: Foreign Body, Esophageal Additional Instructions: Patient was given some sprite soda and was able to swallow successfully and states he felt the licorice pass through and go down successfully. Patient is very grateful for the passage of the licorice. Shared decision-making utilized today. Patient will return to ED with any worsening, concerning or changing symptoms. Referrals: NO PRIMARY CARE PROVIDER (PCP) Signature Scribe Signature: No scribe Attestation: No scribe MATIAS HILLS PAC July 19, 2024 18:51
== END 2024-07-19 19:00 | disposition home or self-care (01) ==
LOC: ER 18:25
DX: R13.10 Dysphagia, unspecified (principal); I11.9 Hypertensive heart disease without heart failure; I25.10 Atherosclerotic heart disease of native coronary artery without angina pectoris; J44.9 Chronic obstructive pulmonary disease, unspecified; F41.9 Anxiety disorder, unspecified; F32.A Depression, unspecified; G43.909 Migraine, unspecified, not intractable, without status migrainosus; F12.90 Cannabis use, unspecified, uncomplicated; F15.90 Other stimulant use, unspecified, uncomplicated; Z86.73 Personal history of transient ischemic attack (TIA), and cerebral infarction without residual deficits
CPT/HCPCS: 99281

== ENCOUNTER 2024-08-23 13:19 | Emergency (ER) | payer BC, MEDICAID ==
[~2024-08-23] VITALS: Ht 177.8 cm; Wt 95.0 kg
[2024-08-23 13:39] VITALS: TEMP 98
--- NOTE | 2024-08-23 13:41 | Physician Documentation ---
History of Present Illness ~ Chief Complaint: Leg Pain Stated Complaint: POSS BLOOD CLOT Time Seen by MD: 17:00 [facility] HPI 63-year-old male presents to the ED will complaining of 2-3 days of increased pain in his left lower extremity. He was sent here from another provider to be evaluated for DVT. History also has been experiencing increased blurry vision Day of Onset: Aug 23, 2024 Tetanus witin 5 years: No Medication Reconciliation Allergies: Coded Allergies: No Known Allergies (Unverified , 08/23/24) Scheduled Buspirone HCl (Buspirone HCl), 1 TABLET PO BID, (Reported) Cyclobenzaprine* (Cyclobenzaprine*), 1 TAB PO HS Diazepam (Diazepam), 1 TAB PO TID PRN, (Reported) Lisinopril (Lisinopril), 20 MG PO DAILY, (Reported) Testosterone Cypionate (TESTOSTERONE CYPIONATE 200mg/ml 10ml vial), 1 ML IM Q2W, (Reported) Trazodone HCl (Trazodone HCl), 1 TAB PO HS, (Reported) Scheduled PRN Albuterol Sulfate (Ventolin Hfa), 2 PUFFS INH Q8HPRN PRN for SOB or wheezing Nitroglycerin SL* (Nitrostat SL*), 0.4 MG SL Q5MIN PRN for chest pain Past Medical History Past Medical History: CVA/TIA/Stroke, Headache, Migraine, Vertigo, Coronary Artery Disease, Hypertension, Myocardial Infarction, COPD, Constipation, Diverticulitis, Diverticulosis, Chronic Pain, Chronic Back Pain, Anxiety, Depression Past Surgical History: angioplasty, orthopedic surgeries, other Other Past Surgical History: thyroid surgery Other Past Family History: NONE Alcohol Use: None Drug Use: marijuana, methamphetamine Lives with: Other Lives In: Home Occupation: disabled Review of Systems All Other Systems at this time: Reviewed and Negative ROS As stated above in the HPI, otherwise all systems are reviewed and negative. Physical Exam Physical Exam General: Alert, no apparent distress. HEENT: PERRL, EOMI, no injection, moist mucous membranes. t. Extremities: Normal range of motion, no deformity. Neurologic: Oriented x4. Psychiatric: Normal mood and affect. Skin: Normal color, warm and dry. No edema, no ecchymosis. Progress Results/Orders Results/Orders Orders - ANT JOINER H BILL CHECKER Vl Venous (08/23/24 ) Chest,Single View (08/23/24 17:02) Monitor (08/23/24 17:02) Saline Lock (08/23/24 17:02) Oxygen (08/23/24 17:02) Hs Troponin I W Calculations (08/23/24 19:02) Hs Troponin I W Calculations (08/23/24 20:02) Completed Orders - ANT JOINER BILL CHECKER Chest,Single View (08/23/24 17:02) Cbc/Diff (08/23/24 17:02) BMP (08/23/24 17:02) PBNP (08/23/24 17:02) Electrocardiogram (08/23/24 17:02) Hs Troponin I W Calculations (08/23/24 17:02) Vital Signs 08/23/24 08/23/24 13:39 17:12 Temp 98.0 Pulse 63 63 Resp 18 15 B/P (MAP) 169/88 132/69 (90) Pulse Ox 98 96 Laboratory Tests Test 08/23/24 17:36 White Blood Count 9.1 Red Blood Count 4.87 Hemoglobin 16.5 Hematocrit 47.5 Mean Corpuscular Volume 97.5 Mean Corpuscular Hemoglobin 33.8 H Mean Corpuscular Hemoglobin Concent 34.7 Red Cell Distribution Width 13.3 Platelet Count 208 Mean Platelet Volume 9.3 Neutrophils (%) (Auto) 69.3 Lymphocytes (%) (Auto) 18.9 L Monocytes (%) (Auto) 8.4 Eosinophils (%) (Auto) 2.9 Basophils (%) (Auto) 0.5 Neutrophils # (Auto) 6.3 Lymphocytes # (Auto) 1.7 Monocytes # (Auto) 0.8 Eosinophils # (Auto) 0.3 Basophils # (Auto) 0.0 CBC Comment Sodium Level 146 H Potassium Level 3.9 Chloride Level 109 H Carbon Dioxide Level 27.6 Anion Gap 9 Blood Urea Nitrogen 13 Creatinine 1.21 H Estimated GFR/1.73 m2 60 BUN/Creatinine Ratio 10.7 Glucose Level 89 Calcium Level 8.7 Troponin I High Sensitivity 8 Pro-B-Type Natriuretic Peptide 46 Albumin 3.4 Chemistry Comments Medical Decision Making Findings This 63-year-old male with a history of cardiac diagnoses was evaluated for DVT in his left lower extremity. There was no notable DVT however the technical delivery manager did make note of fluid buildup in the superior aspect of the patient's knee. This leads me to be me to believe that he is likely suffering from prepatellar bursitis which may not have been caused by trauma or by kneeling.. However patient does not meet criteria for any further evaluation at this time as he does not present with any chest pain shortness of breath or worsening concerns. No evidence of septic bursitis as well as his laboratory values unremarkable Patient did come back with inflamed lymph nodes in the affected leg. May be an infectious process beginning therefore I am going to place him on Keflex Departure Disposition: HOME / SELF CARE / HOMELESS Impression: Primary Impression: Prepatellar bursitis Condition: Stable Discharge Instructions: Prepatellar Bursitis Referrals: NO PRIMARY CARE PROVIDER (PCP) Prescriptions Cephalexin*Monohydrate* (Keflex*) 500 Mg Capsule 1 CAP PO QID, #40 CAP Prov: NAT JOINER BILL CHECKER 08/23/24 Education Educated: Patient Educated regarding: diagnosis Signature Scribe Signature: g Attestation: The note accurately reflects work and decisions made by me.Ant Joiner - EDDI 08/23/24 18:22 ANT JOINER NP Aug 23, 2024 13:41
--- NOTE | 2024-08-23 17:13 | ELECTROCARDIOGRAPH REPORT ---
[facility] Test Date: 2024-08-23 Test Time: 17:12:09 Pat Name: ANA MARÍA MARTINEZ Department: [facility]-ER Patient ID: [facility]-[id number] Room: Gender: M Technical Account Manager: : 1960 Requested By: FLORA JOINER Order Number: [id number] Reading MD: Measurements Intervals [place] Rate: 64 P: 33 UT: 129 QRS: 59 QRSD: 100 T: 61 QT: 385 QTc: 398 Interpretive Statements Sinus rhythm Minimal ST elevation, anterior leads Please click the below link to view image of tracing.
[2024-08-23 17:46] LABS: BASOPHILS % (AUTO) 0.5 % (0-1); EOSINOPHILS # (AUTO) 0.3 X10'3 (0-0.9); EOSINOPHILS % (AUTO) 2.9 % (0-6); HEMATOCRIT 47.5 % (42.0-52.0); HEMOGLOBIN 16.5 g/dl (14.0-17.9); LYMPHOCYTES # (AUTO) 1.7 X10'3 (1.1-4.8); LYMPHOCYTES % (AUTO) 18.9 % (21-51); MEAN CORPUSCULAR HEMOGLOBIN 33.8 PG (27.0-31.0); MEAN CORPUSCULAR HGB CONC 34.7 g/dL (33.0-36.5); MEAN CORPUSCULAR VOLUME 97.5 FL (78-98); MEAN PLATELET VOLUME 9.3 FL (7.4-10.4); MONOCYTES # (AUTO) 0.8 X10'3 (0-0.9); MONOCYTES % (AUTO) 8.4 % (2-12); NEUTROPHILS # (AUTO) 6.3 X10'3 (1.8-7.7); NEUTROPHILS % (AUTO) 69.3 % (42-75); PLATELET COUNT 208 X10'3 (140-440); RED BLOOD COUNT 4.87 X10'6 (4.70-6.10); RED CELL DISTRIBUTION WIDTH 13.3 % (11.5-14.5); WHITE BLOOD COUNT 9.1 X10'3 (4.5-11.0)
[2024-08-23 18:13] LABS: ALBUMIN 3.4 G/DL (3.4-5.0); ANION GAP 9 (8-16); BLOOD UREA NITROGEN 13 MG/DL (7-18); BUN/CREATININE RATIO 10.7 (10.0-20.0); CALCIUM 8.7 MG/DL (8.5-10.1); CHLORIDE 109 MMOL/L (99-107); CREATININE 1.21 MG/DL (0.60-1.10); GLUCOSE 89 MG/DL (70-104); POTASSIUM 3.9 MMOL/L (3.5-5.1); PRO BRAIN NATRIURETIC PEPTIDE 46 PG/ML (0-125); SODIUM 146 MMOL/L (135-145); TOTAL CARBON DIOXIDE 27.6 MMOL/L (24-32); eCRCL 64 ML/MIN; eGFR 60 ML/MIN
[2024-08-23] MEDS ORDERED: CEPH-585 PO (18:38)
[2024-08-23 18:52] VITALS: RESP 17
[2024-08-23] MEDS: ketorolac trometh 15mg/ml vial 15 MG/ML ML IV ONE (18:52)
[2024-08-23 18:59] VITALS: BP 118/78; PULSE 63; O2SAT 96
--- NOTE | 2024-08-23 19:24 | VASCULAR REPORT ---
EXAM: US Duplex Left Lower Extremity Veins CLINICAL INDICATION: Reason TECHNIQUE: Real-time duplex ultrasound scan of the left lower extremity veins integrating B-mode two -dimensional vascular structure, Doppler spectral analysis, color flow Doppler imaging and compressio n. COMPARISON: None FINDINGS: DEEP VEINS: Unremarkable. No DVT in the visualized common femoral, femoral, proximal deep femoral or popliteal veins. The veins demonstrate normal color flow, are normally compressible, with normal phasic flow and/or augmentation response. SUPERFICIAL VEINS: Unremarkable. No thrombus in the visualized great saphenous vein. SOFT TISSUES: Probable vu's cysts measuring up to 1.6 cm. LYMPH NODES: Enlarged left groin lymph node measuring up to 2.9 cm. OTHER FINDINGS: . Possible fluid in the knee joint. . IMPRESSION: No DVT.
--- NOTE | 2024-08-24 08:52 | RADIOLOGY REPORT ---
DI CHEST,SINGLE VIEW, HISTORY: CP COMPARISON: CHEST,SINGLE VIEW on DOS: 09/16/22, CHEST,SINGLE VIEW on DOS: 01/20/20 CHEST,SINGLE VIEW on DOS: 09/16/22, CHEST,SINGLE VIEW on DOS: 01/20/20 TECHNICAL DATA: 1 view of the chest was obtained. FINDINGS: Lines and tubes: None Cardiomediastinal silhouette: normal Pulmonary vasculature: normal Lung expansion: normal Lung airspace: normal Lung interstitium: normal Pleura: normal Pneumothorax: no Bones: Unremarkable Other: no IMPRESSION: No acute intrathoracic abnormality.
== END 2024-08-23 19:00 | disposition home or self-care (01) ==
LOC: ER 13:20
DX: M70.42 Prepatellar bursitis, left knee (principal); R06.02 Shortness of breath; I10 Essential (primary) hypertension; I25.10 Atherosclerotic heart disease of native coronary artery without angina pectoris; I25.2 Old myocardial infarction; J44.9 Chronic obstructive pulmonary disease, unspecified; F12.90 Cannabis use, unspecified, uncomplicated; F15.90 Other stimulant use, unspecified, uncomplicated; Z86.73 Personal history of transient ischemic attack (TIA), and cerebral infarction without residual deficits; Y93.89 Activity, other specified
CPT/HCPCS: 36415; 71045; 80048; 83880; 84484; 85025; 93005; 93971; 96374; 99285; J1885; A6449

== ENCOUNTER 2024-08-27 18:13 | Emergency (ER) | payer BC, MEDICAID ==
[~2024-08-27] VITALS: Ht 177.8 cm; Wt 92.1 kg
[~2024-08-27 18:13] MED LIST changes: +CEPH-585 PO
[2024-08-27 18:25] VITALS: BP 149/91; PULSE 65; RESP 17; TEMP 98.6; O2SAT 96
--- NOTE | 2024-08-27 18:33 | Physician Documentation ---
History of Present Illness Chief Complaint: See Chief Complaint Stated Complaint: "I HAVE A HERNIA" Primary Medical Doctor: [facility], Dr. Mayberry (ENT) HPI 63-year-old male with complaints of increasing pain with left inguinal hernia. Patient is continues to lift at the gym and had a recent ER visit for bursitis but did not notice the pain a few days ago as bad as it is today. Patient does state that he potentially has prostate issues and difficulty urinating. Patient states that he has noticed increased pain for a few weeks but worse today but has ultimately had the hernia for months Medication Reconciliation Allergies: Coded Allergies: No Known Allergies (Unverified , 08/23/24) Scheduled Buspirone HCl (Buspirone HCl), 1 TABLET PO BID, (Reported) Cephalexin*Monohydrate* (Keflex*), 1 CAP PO QID Cyclobenzaprine* (Cyclobenzaprine*), 1 TAB PO HS Diazepam (Diazepam), 1 TAB PO TID PRN, (Reported) Lisinopril (Lisinopril), 20 MG PO DAILY, (Reported) Testosterone Cypionate (TESTOSTERONE CYPIONATE 200mg/ml 10ml vial), 1 ML IM Q2W, (Reported) Trazodone HCl (Trazodone HCl), 1 TAB PO HS, (Reported) Scheduled PRN Albuterol Sulfate (Ventolin Hfa), 2 PUFFS INH Q8HPRN PRN for SOB or wheezing Nitroglycerin SL* (Nitrostat SL*), 0.4 MG SL Q5MIN PRN for chest pain Past Medical History Past Medical History: CVA/TIA/Stroke, Headache, Migraine, Vertigo, Coronary Artery Disease, Hypertension, Myocardial Infarction, COPD, Constipation, Diverticulitis, Diverticulosis, Chronic Pain, Chronic Back Pain, Anxiety, Depression Past Surgical History: angioplasty, orthopedic surgeries, other Other Past Surgical History: thyroid surgery Other Past Family History: NONE Alcohol Use: None Drug Use: marijuana, methamphetamine Lives with: Other Lives In: Home Occupation: disabled Physical Exam General Appearance: WD/WN, no apparent distress Respiratory: lungs clear Chest: no accessory muscle use Cardiovascular: regular rate, rhythm Departure Referrals: NO PRIMARY CARE PROVIDER (PCP) ADRYAN TRACEY NP Aug 27, 2024 18:33
== END 2024-08-27 19:18 | disposition left against medical advice (07) ==
LOC: ER 18:14
DX: K40.90 Unilateral inguinal hernia, without obstruction or gangrene, not specified as recurrent (principal); I10 Essential (primary) hypertension; I25.10 Atherosclerotic heart disease of native coronary artery without angina pectoris; I25.2 Old myocardial infarction; J44.9 Chronic obstructive pulmonary disease, unspecified; G43.909 Migraine, unspecified, not intractable, without status migrainosus; F41.9 Anxiety disorder, unspecified; F32.A Depression, unspecified; F12.90 Cannabis use, unspecified, uncomplicated; F15.90 Other stimulant use, unspecified, uncomplicated; Z86.73 Personal history of transient ischemic attack (TIA), and cerebral infarction without residual deficits
CPT/HCPCS: 99281

== ENCOUNTER 2024-09-18 14:51 | Emergency (ER) | payer BC, MEDICAID ==
[~2024-09-18] VITALS: Ht 177.8 cm; Wt 95.5 kg
[2024-09-18 14:52] VITALS: BP 142/85; PULSE 71; RESP 28; TEMP 98.9; O2SAT 98
--- NOTE | 2024-09-18 15:12 | ELECTROCARDIOGRAPH REPORT ---
[facility] Test Date: 2024-09-18 Test Time: 15:10:04 Pat Name: ANA MARÍA MARTINEZ Department: [facility]-ER Patient ID: [facility]-[id number] Room: Gender: M Remote Sensing Surveyor: : 1960 Requested By: ALEKSANDRA SPEARS Order Number: [id number] Reading MD: Measurements Intervals Jud Rate: 70 P: 54 CO: 139 QRS: 64 QRSD: 99 T: 11 QT: 367 QTc: 396 Interpretive Statements Sinus rhythm Probable left atrial enlargement Minimal ST depression, inferior leads Baseline wander in lead(s) V2,V4 Please click the below link to view image of tracing.
[2024-09-18 15:29] LABS: MEAN PLATELET VOLUME 8.7 FL (7.4-10.4); RED CELL DISTRIBUTION WIDTH 13.1 % (11.5-14.5)
[2024-09-18 15:50] LABS: CREATININE 1.10 MG/DL (0.60-1.10); PRO BRAIN NATRIURETIC PEPTIDE 63 PG/ML (0-125); TOTAL CARBON DIOXIDE 25.1 MMOL/L (24-32); eCRCL 69 ML/MIN; eGFR 67 ML/MIN
--- NOTE | 2024-09-18 16:42 | RADIOLOGY REPORT ---
CLINICAL INFORMATION: Shortness of breath. TECHNIQUE: Frontal and lateral chest radiographs were obtained. COMPARISON: None FINDINGS: Lungs: Clear. Cardiac: Heart size is within normal limits. Pulmonary vasculature: Unremarkable Mediastinum/esvin: Within normal limits. Bones: No evidence of acute osseous abnormality. Other: No other significant finding. IMPRESSION: No evidence of acute disease in the chest.
== END 2024-09-18 20:03 | disposition left against medical advice (07) ==
LOC: ER 14:52
DX: R06.02 Shortness of breath (principal); Z53.21 Procedure and treatment not carried out due to patient leaving prior to being seen by health care provider
CPT/HCPCS: 36415; 71046; 80048; 83605; 83880; 85025; 87040; 93005

== ENCOUNTER 2024-09-19 15:14 | Emergency (ER) | payer BC, MEDICAID ==
[~2024-09-19] VITALS: Ht 177.8 cm; Wt 95.0 kg
[2024-09-19 15:23] VITALS: TEMP 98
--- NOTE | 2024-09-19 16:34 | Physician Documentation ---
History of Present Illness ~ Chief Complaint: Shortness of Breath Stated Complaint: RECHECK Time Seen by MD: 15:45 [facility] Mode of Arrival: POV HPI Patient is seen today with complaints of acute on chronic shortness of breath. Patient states his shortness of breath is little better than it was yesterday. Patient had some labs drawn yesterday but then left before getting those results. Patient has no new or other concern or complaint at this time. He denies any chest pain or abdominal pain or nausea, vomiting, diarrhea. Patient was just seen here yesterday and had labs drawn yesterday. Patient has no other concern or complaint at this time. Medication Reconciliation Allergies: Coded Allergies: No Known Allergies (Unverified , 08/23/24) Scheduled Buspirone HCl (Buspirone HCl), 1 TABLET PO BID, (Reported) Cephalexin*Monohydrate* (Keflex*), 1 CAP PO QID Cyclobenzaprine* (Cyclobenzaprine*), 1 TAB PO HS Diazepam (Diazepam), 1 TAB PO TID PRN, (Reported) Lisinopril (Lisinopril), 20 MG PO DAILY, (Reported) Testosterone Cypionate (TESTOSTERONE CYPIONATE 200mg/ml 10ml vial), 1 ML IM Q2W, (Reported) Trazodone HCl (Trazodone HCl), 1 TAB PO HS, (Reported) Scheduled PRN Albuterol Sulfate (Ventolin Hfa), 2 PUFFS INH Q8HPRN PRN for SOB or wheezing Nitroglycerin SL* (Nitrostat SL*), 0.4 MG SL Q5MIN PRN for chest pain Past Medical History Past Medical History: CVA/TIA/Stroke, Headache, Migraine, Vertigo, Coronary Artery Disease, Hypertension, Myocardial Infarction, COPD, Constipation, Diverticulitis, Diverticulosis, Chronic Pain, Chronic Back Pain, Anxiety, Depression Past Surgical History: angioplasty, orthopedic surgeries, other Other Past Surgical History: thyroid surgery Other Past Family History: NONE Smoking Status: Current every day smoker Alcohol Use: None Drug Use: marijuana, methamphetamine Lives with: Other Lives In: Home Occupation: disabled Review of Systems Constitutional: Denies: chills, fever, weakness Eyes: Denies: pain, blurred vision ENT: Denies: ear pain, nose pain, throat pain, mouth pain Respiratory: Denies: cough, shortness of breath Cardiovascular: Denies: chest pain, palpitations Gastrointestinal: Denies: abdominal pain, nausea, vomiting Genitourinary: Denies: burning, dysuria Male Genitalia: Denies: penile discharge, testicular pain Neurological: Denies: headache, dizziness Musculoskeletal: Denies: pain, swelling Integumentary: Denies: rash, lesions Allergic/Immunologic: Denies: hives, itching Hematologic/Lymphatic: Denies: no symptoms reported Psychiatric: Denies: depression, anxiety Physical Exam Vital Signs: Temperature: 98.0, Heart Rate: 82, Respiratory Rate: 18, BP: 117/84, Pulse Oximetry: 96, Weight: 95.000 Physical Exam General: Awake and Alert, no acute distress. HEENT: Conjunctiva pink, Sclera clear, Mucus Membranes moist. Neck: Supple without masses and tenderness. Resp: Unlabored. Lungs clear to auscultation bilaterally. Heart: Regular Rate and rhythm, normal S1 and S2 without murmur, rub or gallop. Abdomen: Soft and non tender no organomegaly Extremities: No cyanosis,clubbing or edema. Skin: Warm and Dry. Progress Results/Orders Results/Orders Vital Signs 09/19/24 09/19/24 15:23 16:04 Temp 98.0 Pulse 82 Resp 20 18 B/P (MAP) 117/84 Pulse Ox 96 Laboratory Tests Test 09/19/24 16:32 D-Dimer 0.21 D-Dimer Comment Medical Decision Making Findings Patient is seen today with complaints of acute on chronic shortness of breath. Patient states his shortness of breath is little better than it was yesterday. Patient had some labs drawn yesterday but then left before getting those results. Patient has no new or other concern or complaint at this time. He denies any chest pain or abdominal pain or nausea, vomiting, diarrhea. Patient was just seen here yesterday and had labs drawn yesterday. Patient has no other concern or complaint at this time. Patient's labs from yesterday were largely unremarkable other than slightly elevated liver enzyme. Patient D-dimer from today was normal and unremarkable. Patient will follow up with primary care in one month for repeat CMP as well as get hepatitis-C screening done outpatient. Patient voiced understanding. Patient will return to ED with any worsening, concerning or changing symptoms. Departure Disposition: 01 HOME / SELF CARE / HOMELESS Impression: Primary Impression: Chronic obstructive pulmonary disease Qualified Codes: J44.1 - Chronic obstructive pulmonary disease with (acute) exacerbation Condition: Improved Additional Instructions: Patient's labs from yesterday were largely unremarkable other than slightly elevated liver enzyme. Patient D-dimer from today was normal and unremarkable. Patient will follow up with primary care in one month for repeat CMP as well as get hepatitis-C screening done outpatient. Patient voiced understanding. Patient will return to ED with any worsening, concerning or changing symptoms. Referrals: NO PRIMARY CARE PROVIDER (PCP) Signature Scribe Signature: No scribe Attestation: No scribe MATIAS HILLS PAC Sep 19, 2024 16:34
[2024-09-19 17:09] VITALS: BP 147/90; PULSE 71; RESP 16; O2SAT 95
== END 2024-09-19 17:30 | disposition home or self-care (01) ==
LOC: ER 15:14
DX: J44.9 Chronic obstructive pulmonary disease, unspecified (principal); I10 Essential (primary) hypertension; I25.10 Atherosclerotic heart disease of native coronary artery without angina pectoris; F12.90 Cannabis use, unspecified, uncomplicated; F17.200 Nicotine dependence, unspecified, uncomplicated; I25.2 Old myocardial infarction; Z86.73 Personal history of transient ischemic attack (TIA), and cerebral infarction without residual deficits
CPT/HCPCS: 36415; 85379; 99283

== ENCOUNTER 2024-10-06 11:29 | Emergency (ER) | payer BC, MEDICAID ==
[~2024-10-06] VITALS: Ht 177.8 cm; Wt 93.8 kg
[2024-10-06 11:34] VITALS: BP 134/53; PULSE 86; RESP 18; O2SAT 97
[2024-10-06] MEDS ORDERED: NIRM1TAB12 PO (12:22)
--- NOTE | 2024-10-06 12:22 | Physician Documentation ---
History of Present Illness ~ Chief Complaint: Flu Symptoms Stated Complaint: COVID COMPLICATIONS Time Seen by MD: 12:04 [facility] HPI Patient presents with a two days of cold cough and congestion. Says he tested positive for COVID. States he wants treatment for that. Patient has a history of heart failure. deneis fevers,nausea vomiting Day of Onset: Oct 06, 2024 Medication Reconciliation Allergies: Coded Allergies: No Known Allergies (Unverified , 08/23/24) Scheduled Buspirone HCl (Buspirone HCl), 1 TABLET PO BID, (Reported) Cephalexin*Monohydrate* (Keflex*), 1 CAP PO QID Cyclobenzaprine* (Cyclobenzaprine*), 1 TAB PO HS Diazepam (Diazepam), 1 TAB PO TID PRN, (Reported) Lisinopril (Lisinopril), 20 MG PO DAILY, (Reported) Nirmatrelvir/Ritonavir (Paxlovid 300/150-100Mg(Severe)), 1 CAP PO DAILY Testosterone Cypionate (TESTOSTERONE CYPIONATE 200mg/ml 10ml vial), 1 ML IM Q2W, (Reported) Trazodone HCl (Trazodone HCl), 1 TAB PO HS, (Reported) Scheduled PRN Albuterol Sulfate (Ventolin Hfa), 2 PUFFS INH Q8HPRN PRN for SOB or wheezing Nitroglycerin SL* (Nitrostat SL*), 0.4 MG SL Q5MIN PRN for chest pain Past Medical History Alcohol Use: None Drug Use: marijuana, methamphetamine Review of Systems All Other Systems at this time: Reviewed and Negative ROS As stated above in the HPI, otherwise all systems are reviewed and negative. Physical Exam Vital Signs: Temperature: 99.5, Source: Temporal, Heart Rate: 86, Respiratory Rate: 18, BP: 134/53, Pulse Oximetry: 97, Weight: 93.800 Oxygen Flow Rate: 0 Physical Exam General: Alert, no apparent distress. Respiratory: Lungs clear, no respiratory distress. Chest: No accessory muscle use. Cardiovascular: Regular rate and rhythm, no murmurs. Neurologic: Oriented x4. Psychiatric: Normal mood and affect. Skin: Normal color, warm and dry. No edema, no ecchymosis. Progress Results/Orders Results/Orders Vital Signs 10/06/24 10/06/24 11:34 12:26 Temp 99.5 99.5 Pulse 86 Resp 18 B/P (MAP) 134/53 Pulse Ox 97 O2 Flow Rate 0 Medical Decision Making Findings This 64-year-old male well known to this ED presents with a subclinical fever. Patient requests the COVID treatment. Based on the length of symptoms I am going to prescribe Paxlovid. Patient remains hemodynamically stable and in no acute distress. Differential Dx:Considerations: Include: Allergic rhinitis, Influenza, Otitis media, Peritonsillar abscess, Pharyngitis-Diphtheria, Pharyngitis-Streptoccal, Pharyngitis-Viral, Pneumonia, Pnuemonitis, Sinusitis, URI, Other Departure Disposition: HOME / SELF CARE / HOMELESS Impression: Primary Impression: Viral infection Additional Impression: Coronavirus infection Condition: Stable Discharge Instructions: Viral Illness, Influenza, Adult Referrals: NO PRIMARY CARE PROVIDER (PCP) Prescriptions Nirmatrelvir/Ritonavir (Paxlovid 300/150-100Mg(Severe)) 150 Mg (6)-100 Mg (5) Tab.ds.pk 1 CAP PO DAILY for cough for 4 Days, #5 PKG Prov: ANT JOINER DIAMOND CLEANER 10/06/24 Education Educated: Patient Educated regarding: diagnosis Signature Scribe Signature: r Attestation: Scribed for Ant Joiner Barrel Loader by Ant Joiner - EDDI . 10/06/24 18:28 ANT JOINER DIAMOND CLEANER Oct 06, 2024 12:22
[2024-10-06 12:26] VITALS: TEMP 99.5
== END 2024-10-06 12:27 | disposition home or self-care (01) ==
LOC: ER 11:29
DX: B34.9 Viral infection, unspecified (principal); U07.1 COVID-19; I50.9 Heart failure, unspecified; F12.90 Cannabis use, unspecified, uncomplicated; F15.90 Other stimulant use, unspecified, uncomplicated
CPT/HCPCS: 99283

== ENCOUNTER 2025-03-02 10:12 | Emergency (ER) | payer BC, MEDICAID ==
[~2025-03-02] VITALS: Ht 177.8 cm; Wt 90.9 kg
[~2025-03-02 10:12] MED LIST changes: +IBUP-1986 PO; +NIRM1TAB12 PO
--- NOTE | 2025-03-02 11:18 | Physician Documentation ---
History of Present Illness ~ Chief Complaint: Bloody Stools Stated Complaint: RECTAL BLEEDING Time Seen by MD: 10:48 Primary Medical Doctor: Frances KURTZ 64-year-old male well known to the ED presents with three days of nausea and diarrhea. He also reports this morning that he has had bloody stools. States he does have a history of hemorrhoids. Denies any current fevers that reports abdominal pain in general malaise. Reports that his fluid intake has not been ideal Day of Onset: Mar 02, 2025 Medication Reconciliation Allergies: Coded Allergies: No Known Allergies (Unverified , 02/01/25) Scheduled Buspirone HCl (Buspirone HCl), 1 TABLET PO BID, (Reported) Cephalexin*Monohydrate* (Keflex*), 1 CAP PO QID Cyclobenzaprine* (Cyclobenzaprine*), 1 TAB PO HS Diazepam (Diazepam), 1 TAB PO TID PRN, (Reported) Ibuprofen (Ibuprofen), 1 TAB PO Q8H Lisinopril (Lisinopril), 20 MG PO DAILY, (Reported) Loperamide Hcl (Loperamide), 2 CAP PO Q6H Nirmatrelvir/Ritonavir (Paxlovid 300/150-100Mg(Severe)), 1 CAP PO DAILY Testosterone Cypionate (TESTOSTERONE CYPIONATE 200mg/ml 10ml vial), 1 ML IM Q2W, (Reported) Trazodone HCl (Trazodone HCl), 1 TAB PO HS, (Reported) Scheduled PRN Albuterol Sulfate (Ventolin Hfa), 2 PUFFS INH Q8HPRN PRN for SOB or wheezing Cyclobenzaprine* (Cyclobenzaprine*), 1 TABLET PO Q8H PRN for muscle spasms Nitroglycerin SL* (Nitrostat SL*), 0.4 MG SL Q5MIN PRN for chest pain Past Medical History Past Medical History: CVA/TIA/Stroke, Headache, Migraine, Vertigo, Coronary Artery Disease, Hypertension, Myocardial Infarction, COPD, Constipation, Diverti culitis, Diverticulosis, Chronic Pain, Chronic Back Pain, Anxiety, Depression Past Surgical History: angioplasty, orthopedic surgeries, other Other Past Surgical History: thyroid surgery Other Past Family History: NONE Alcohol Use: None Drug Use: marijuana, methamphetamine Lives with: Other Lives In: Home Occupation: disabled Review of Systems All Other Systems at this time: Reviewed and Negative ROS As stated above in the HPI, otherwise all systems are reviewed and negative. Physical Exam Vital Signs: Temperature: 98.6, Heart Rate: 92, Respiratory Rate: 18, BP: 127/79, Pulse Oximetry: 95, Weight: 90.910 Oxygen Flow Rate: 0 Physical Exam General: Alert, no apparent distress. HEENT: PERRL, EOMI, no injection, moist mucous membranes. Neck: Full range of motion. Respiratory: Lungs clear, no respiratory distress. Chest: No accessory muscle use. Cardiovascular: Regular rate and rhythm, no murmurs. Gastrointestinal: Soft, nontender, nondistended. Bowels sounds present. Extremities: Normal range of motion, no deformity. Neurologic: Oriented x4. Psychiatric: Normal mood and affect. Skin: Normal color, warm and dry. No edema, no ecchymosis. Progress Results/Orders Results/Orders Orders - FLORA BRENNER SHIPYARD PAINTER Recheck Vital Signs (03/02/25 12:37) Reassess Pt For Discharge (03/02/25 12:37) Completed Orders - FLORA BRENNER SHIPYARD PAINTER Normal Saline 1000ml (0.9% Sodium Chlori (03/02/25 11:25) Ondansetron Inj. (Zofran 4mg/2ml Vial) (03/02/25 11:25) Diazepam Inj (Valium Inj) (03/02/25 11:35) Loperamide Capsule (Imodium Capsule) (03/02/25 13:05) Medications Received in ER Medications (Trade) Dose Ordered Sig/Latricia Route PRN Reason Start Time Stop Time Status Last Admin Dose Admin (0.9% sodium chloride (NS) 1000ml IV soln) 1,000 ml ONCE ONCE IVB 03/02/25 11:25 03/02/25 11:26 DC 03/02/25 12:14 1,000 ML (Zofran 4mg/2ml vial) 4 mg ONCE ONCE IV 03/02/25 11:25 03/02/25 11:26 DC 03/02/25 12:14 4 MG (Valium inj) 10 mg ONCE ONCE IV 03/02/25 11:35 03/02/25 11:36 DC 03/02/25 12:15 10 MG (Imodium capsule) 2 mg ONCE ONCE PO 03/02/25 13:05 03/02/25 13:06 DC 03/02/25 13:15 2 MG Vital Signs 03/02/25 03/02/25 03/02/25 03/02/25 10:18 11:51 12:15 12:52 Temp 98.6 98.6 Pulse 92 88 Resp 18 16 20 B/P (MAP) 127/79 95/51 (66) Pulse Ox 95 97 O2 Flow Rate 0 0 03/02/25 13:20 Temp 98.6 Pulse 85 Resp 16 B/P (MAP) 117/67 Pulse Ox 97 Laboratory Tests Test 03/02/25 10:58 White Blood Count 11.6 H Red Blood Count 4.61 L Hemoglobin 15.4 Hematocrit 44.5 Mean Corpuscular Volume 96.5 Mean Corpuscular Hemoglobin 33.5 H Mean Corpuscular Hemoglobin Concent 34.7 Red Cell Distribution Width 13.0 Platelet Count 287 Mean Platelet Volume 9.0 Neutrophils (%) (Auto) 66.5 Lymphocytes (%) (Auto) 13.0 L Monocytes (%) (Auto) 15.0 H Eosinophils (%) (Auto) 5.1 Basophils (%) (Auto) 0.4 Neutrophils # (Auto) 7.7 Lymphocytes # (Auto) 1.5 Monocytes # (Auto) 1.7 H Eosinophils # (Auto) 0.6 Basophils # (Auto) 0.0 CBC Comment Sodium Level 140 Potassium Level 3.9 Chloride Level 102 Carbon Dioxide Level 27.0 Anion Gap 11 Blood Urea Nitrogen 29 H Creatinine 1.22 H Estimated GFR/1.73 m2 60 BUN/Creatinine Ratio 23.8 H Glucose Level 98 Calcium Level 9.8 Total Bilirubin 1.0 Aspartate Amino Transf (AST/SGOT) 127 H Alanine Aminotransferase (ALT/SGPT) 64 Alkaline Phosphatase 101 Total Protein 7.3 Albumin 4.1 Globulin 3.2 Albumin/Globulin Ratio 1.3 Lipase 20 Chemistry Comments Medical Decision Making Additional information obtaine: old records Findings This patient initially presented very anxious with complaints of bloody stools he does not have any signs of anemia indicating profuse GI bleed. Highly suspicious of bleeding hemorrhoids secondary to ongoing diarrhea. Provided him with fluids and Valium to assist with his anxiety. I advised him of my findings and I am going to discharge him once he is safe for discharge Diff Dx GI Bleed:Consideration: Include: AE fistula, Angiodysplasia, Bleeding diathesis, Blood loss anemia, Carcinoma, Diverticulosis, Diverticulitis, Esophageal varicies, Esophagitis, Gastritis, Gastroenteritis, Inflammatory BD, Nydia-Flores syndrome, Meckel's diverticulum, PUD, Other Diff Dx Pain:Considerations: Unlikely: AAA, Angina/MO, Aortic dissection, Appendicitis, Bowel obstruction, Cholangitis, Cholecystitis, Cholelithasis, Constipation, Diverticular disease, Esophageal rupture, Esophagitis, Gastritis, Gastroenteritis, GI hemorrhage, Hepatitis, Hernia, Inflammatory BD, Ischemic bowel, Mass, Pancreatitis, Porphyria, PUD, Testicular torsion, Trauma, intraabd ominal, Urinary obstruction, Urinary tract infection, Urolithiasis, Other Diff Dx N/V/D:Considerations: Unlikely: Appendicitis, Bowel obstruction, Dehydration, DKA, Diarrhea - bacterial, Diarrhea - parasitic, Diarrhea - viral, Diverticulitis, Diverticulosis, Drug toxicity, Electrolyte imbalance, Food poisoning, Gastroenteritis, GE reflux, GI bleed, Hepatitis, Hernia, Hypovolemia, Hypotension, Inflammatory BD, Impaction, Malnutrition, Pancreatitis, PUD, Renal failure, Urinary obstruction, UTI, Urolithiasis, Other Diff Dx Rectal:Considerations: Unlikely: Fissure, Fistula, Foreign body, Impac tion, Perirectal abscess, Prostatitis, Rectal prolapse, Subcutaneous abscess, Thrombosed hemorrhoid, Ulcer, UTI, Other Departure Disposition: 01 HOME / SELF CARE / HOMELESS Impression: Primary Impression: Diarrhea Condition: Improved Discharge Instructions: Bloody Diarrhea, Bloody Stools Referrals: NO PRIMARY CARE PROVIDER (PCP) Prescriptions Loperamide Hcl (Loperamide) 2 Mg Capsule 2 CAP PO Q6H for loose stool for 5 Days, #40 CAP 0 Refills Prov: FLORA BRENNER NP 03/02/25 Education Educated: Patient Educated regarding: diagnosis Signature Scribe Signature: f Attestation: Scribed for Flora Brenner Np by Flora Mantilla NP . 03/02/25 14:59 FLORA BRENNER NP Mar 02, 2025 11:18
[2025-03-02 11:23] LABS: MEAN PLATELET VOLUME 9.0 FL (7.4-10.4); RED CELL DISTRIBUTION WIDTH 13.0 % (11.5-14.5)
[2025-03-02 11:43] LABS: CREATININE 1.22 MG/DL (0.60-1.10); TOTAL CARBON DIOXIDE 27.0 MMOL/L (24-32); eCRCL 62 ML/MIN; eGFR 60 ML/MIN
[2025-03-02] MEDS: normal saline 1000ML IV soln IVB ONE (12:14)
[2025-03-02] MEDS: ondansetron/PF 4mg/2ml inj IV ONE (12:14)
[2025-03-02] MEDS: diazepam inj 5 MG/ML inj. IV ONE (12:15)
[2025-03-02] MEDS ORDERED: LOPE2CAP PO (13:04)
[2025-03-02] MEDS: loperamide 2mg capsule PO ONE (13:15)
[2025-03-02 13:20] VITALS: BP 117/67; PULSE 85; RESP 16; TEMP 98.6; O2SAT 97
== END 2025-03-02 13:26 | disposition home or self-care (01) ==
LOC: ER 10:12
DX: R19.7 Diarrhea, unspecified (principal); R11.0 Nausea; J44.9 Chronic obstructive pulmonary disease, unspecified; I25.2 Old myocardial infarction; I25.10 Atherosclerotic heart disease of native coronary artery without angina pectoris; I10 Essential (primary) hypertension; G89.29 Other chronic pain; G43.909 Migraine, unspecified, not intractable, without status migrainosus; F41.9 Anxiety disorder, unspecified; F12.90 Cannabis use, unspecified, uncomplicated; F15.90 Other stimulant use, unspecified, uncomplicated; F32.A Depression, unspecified; Z86.73 Personal history of transient ischemic attack (TIA), and cerebral infarction without residual deficits; Z87.19 Personal history of other diseases of the digestive system; Z79.899 Other long term (current) drug therapy; Z98.890 Other specified postprocedural states
CPT/HCPCS: 36415; 80053; 83690; 85025; 96361; 96374; 96375; 99284; J2405; J3360; J7030